=== PATIENT | female | born 1965 | race Caucasian/White ===

== ENCOUNTER 2017-03-02 13:06 | Emergency (ER) | payer OTHER ==
--- NOTE | 2017-03-02 13:12 | UC ---
Cardiac HPI - History of Current Complaint Stated Complaint: CHEST PAIN Time Seen by Provider: 03/02/17 13:11 - Allergy/Home Medications Allergies/Adverse Reactions: Allergies Allergy/AdvReac Type Severity Reaction Status Date / Time Sulfa Drugs Allergy Hives Verified 09/15/13 09:55 PMH/Surg Hx/FS Hx/Imm Hx - Surgical History Surgical History: Yes Surgery Procedure, Year, and Place: D&C w/ ablation, sling and mesh - Social History Alcohol Use: Rare Substance Use Type: None Smoking Status (MU): Never Smoked Tobacco Discharge - Discharge Plan Condition: Stable Disposition: HOME Referrals: Rgoelio Pino MD [Primary Care Provider] - If Needed
--- NOTE | 2017-03-02 13:24 | UC ---
Cardiac HPI - HPI Summary HPI Summary: Severe epigastric pain, sudden onset about 2 hours ago while sitting/walking. Denies radiation or SOB, though pain is worse with deep breaths. No prior AK or stent, denies DM. Father had first AK in his 40s. Some nausea, no vomiting. Also developed significant pain behind L knee yesterday, no known trauma or injury. No hx of DVT, no leg swelling. - History of Current Complaint Chief Complaint: UCChestPain Stated Complaint: CHEST PAIN Time Seen by Provider: 03/02/17 13:11 Hx Obtained From: Patient Onset/Duration: Sudden Onset Timing: Constant Initial Severity: Mild Current Severity: Severe Chest Pain Location: Lower Sternal Character: Dull/Aching, Tightness, Sharp/Stabbing Aggravating: Deep Breaths Alleviating: Nothing Associated Signs & Symptoms: Positive: Chest Pain. Negative: Headaches, Numbness, Tingling, Dizziness, SOB, Swelling, Fever, Diaphoresis, Back Pain - Allergy/Home Medications Allergies/Adverse Reactions: Allergies Allergy/AdvReac Type Severity Reaction Status Date / Time Sulfa Drugs Allergy Hives Verified 03/02/17 13:19 PMH/Surg Hx/FS Hx/Imm Hx Previously Healthy: No - RA Respiratory History: Asthma - Surgical History Surgical History: Yes Surgery Procedure, Year, and Place: D&C w/ ablation, sling and mesh - Social History Alcohol Use: Rare Substance Use Type: None Smoking Status (MU): Never Smoked Tobacco Review of Systems Constitutional: Negative Skin: Negative Eyes: Negative ENT: Negative Respiratory: Negative Cardiovascular: Chest Pain Gastrointestinal: Negative Genitourinary: Negative Motor: Negative Neurovascular: Negative Musculoskeletal: Other: - pain behind L knee, inability to straighten Neurological: Negative Psychological: Negative All Other Systems Reviewed And Are Negative: Yes Physical Exam Triage Information Reviewed: Yes Appearance: Well-Appearing, Well-Nourished, Pain Distress - mod, crying and positioning Vital Signs: Initial Vital Signs Temp 98.6 F 03/02/17 13:14 Pulse 75 03/02/17 13:14 Resp 20 03/02/17 13:14 BP 151/88 03/02/17 13:14 Pulse Ox 99 03/02/17 13:14 Vital Signs Reviewed: Yes Eye Exam: Other - PERRL Eyes: Positive: Conjunctiva Inflamed - crying ENT: Positive: Hearing grossly normal, Pharynx normal, Nasal congestion, TMs normal Dental Exam: Normal Neck exam: Normal Neck: Positive: Supple, Nontender, No Lymphadenopathy Respiratory Exam: Normal Respiratory: Positive: Chest non-tender, Lungs clear, Normal breath sounds, No respiratory distress, No accessory muscle use Cardiovascular Exam: Normal Cardiovascular: Positive: RRR, No Murmur Abdominal Exam: Other - epigastric pain Abdomen Description: Negative: Distended, Guarding Musculoskeletal: Positive: No Edema, ROM Limited @ - L knee Neurological Exam: Normal Neurological: Positive: Alert Psychological Exam: Normal Skin Exam: Normal - Clinical Impression Provider Diagnoses: severe epigastric/chest pain - Physician Notifications Discussed Patient Care With: AGUSTIN Aviles - Gave report, she will have provider call back if they have further question Time Discussed With Above Provider: 13:23 Discharge - Discharge Plan Condition: Stable Disposition: TRANS HIGHER LVL OF CARE FAC Referrals: Rogelio Pino MD [Primary Care Provider] - If Needed
[2017-03-02] MEDS ORDERED: NS 0.9% 1000 ML* 1,000 ML BOLUS SCH (13:30)
[2017-03-02 13:42] VITALS: BP 133/82
[2017-03-03] MEDS ORDERED: Aspirin Low Dose CHEW TAB* 81 MG PO ONE (13:14)
== END 2017-03-02 13:45 | disposition short-term general hospital (02) ==
LOC: UCEAST 13:06
DX: R07.9 Chest pain, unspecified (principal); R10.13 Epigastric pain; Z88.2 Allergy status to sulfonamides; J45.909 Unspecified asthma, uncomplicated
CPT/HCPCS: 93005; 99213; A9270-GY; G0463

== ENCOUNTER 2017-03-02 14:12 | Emergency (ER) | payer OTHER ==
[2017-03-02 14:32] VITALS: BP 146/76
--- NOTE | 2017-03-02 15:22 | RAD ---
INDICATION: Chest pain. COMPARISON: There are no prior studies available for comparison. TECHNIQUE: A portable view of the chest was obtained. FINDINGS: Cardiac and mediastinal contours appear to be within normal limits. The lungs are clear. No pleural effusion is seen. IMPRESSION: NO EVIDENCE FOR ACUTE DISEASE.
[2017-03-02 15:45] LABS: Hematocrit 40 % (35-47); Hemoglobin 13.1 g/dl (12.0-16.0); Mean Corpuscular HGB Conc 33 g/dl (31-36); Mean Corpuscular Hemoglobin 33 pg (27-31); Mean Corpuscular Volume 99 fL (80-97); Mean Platelet Volume 7 um3 (7.4-10.4); Red Blood Count 4.01 10^6/ul (4.0-5.4); Red Cell Distribution Width 13 % (10.5-15); White Blood Count 7.2 10^3/ul (3.5-10.8)
[2017-03-02 16:00] LABS: Albumin 4.3 g/dL (3.2-5.2); BUN/Creatinine Ratio 18.5 (8-20); Calcium 9.8 mg/dL (8.6-10.3); EGFR African American 95.5 (>60); EGFR Non-African American 74.3 (>60); Globulin 3.4 g/dL (2-4); Magnesium 2.1 mg/dL (1.9-2.7); Potassium 3.8 mmol/L (3.5-5.0); Total Bilirubin 0.4 mg/dL (0.2-1.0); Total Protein 7.7 g/dL (6.4-8.9)
[2017-03-02 16:10] LABS: TSH (Thyroid Stimulating Horm) 3.02 mcIU/mL (0.34-5.60)
[2017-03-02] MEDS ORDERED: Pantoprazole TAB (NF) 40 MG TAB PO ONE (16:50)
[2017-03-02] MEDS ORDERED: Lidocaine 2% VISCOUS* 15 ML UDC PO ONE (16:50)
[2017-03-02] MEDS ORDERED: Al Hydrox/Mg Hydrox/Simet LIQ* 30 ML UDC PO ONE (16:50)
[2017-03-02] MEDS ORDERED: Omeprazole CAP* 20 MG PO ONE (18:00)
--- NOTE | 2017-03-03 09:53 | ED ---
Katerin Pierce Thomas, scribed for Cam Herrera MD on 03/02/17 at 1512 . HPI Chest Pain - HPI Summary HPI Summary: The pt is a 51 y/o F referred from urgent care and BIBA c/o epigastric CP that began today at 11:00. She describes her pain as burning and someone hitting her in the chest. The pain is worsened with deep breaths. She additionally c/o L knee pain (onset this AM), inability to take a deep breath, and nausea. She denies SOB, pedal edema, and vomiting. She denies known trauma to her L knee. She took all of her normal medication this morning. 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 She was in the car for an extended period last week. PMHx: knee issues, GERD, asthma, and RA. PSHx: D&C. SHx: rare alcohol, no illicit drugs, no tobacco. FHx: AL (father first AL in his 40s). - History of Current Complaint Chief Complaint: EDChestPainROMI Time Seen by Provider: 03/02/17 14:50 Hx Obtained From: Patient Onset/Duration: Started Hours Ago - 11:00 today, Still Present Timing: Constant Chest Pain Location: Discrete at: - epigastric Chest Pain Radiates: No Character: Burning, Other: - "someone hitting her in the chest" Aggravating Factor(s): Deep Breaths Alleviating Factor(s): Nothing Associated Signs and Symptoms: Positive: Chest Pain, Nausea, Other: - POS: L knee pain. Negative: Shortness of Breath, Vomiting, Edema - pedal - Allergy/Home Medications Allergies/Adverse Reactions: Allergies Allergy/AdvReac Type Severity Reaction Status Date / Time Sulfa Drugs Allergy Hives Verified 03/02/17 13:19 PMH/Surg Hx/FS Hx/Imm Hx Previously Healthy: No Endocrine/Hematology History: Denies: Hx Diabetes, Hx Thyroid Disease Cardiovascular History: Denies: Hx Congestive Heart Failure, Hx Hypertension Respiratory History: Reports: Hx Asthma Denies: Hx Chronic Obstructive Pulmonary Disease (COPD) GI History: Reports: Other GI Disorders - gerd Denies: Hx Ulcer History: Reports: Other Problems/Disorders - occ uti Musculoskeletal History: Reports: Hx Rheumatoid Arthritis, Other Musculoskeletal History - RA - Surgical History Surgery Procedure, Year, and Place: D&C w/ ablation, sling and mesh Infectious Disease History: No Infectious Disease History: Denies: Hx Clostridium Difficile, Hx Hepatitis, Hx Human Immunodeficiency Virus (HIV), Hx of Known/Suspected MRSA, Hx Shingles, Hx Tuberculosis, Hx Known/ Suspected VRE, Hx Known/Suspected VRSA, History Other Infectious Disease, Traveled Outside the [place] in Last 30 Days - Family History Known Family History: Positive: Other - POS: AL (father first in 40s) - Social History Alcohol Use: Rare Substance Use Type: Reports: None Smoking Status (MU): Never Smoked Tobacco Review of Systems Constitutional: Negative Negative: Fever Eyes: Negative ENT: Negative Positive: Chest Pain - epigastric, 11:00 onset, burning, not alleviated by NTG or ASA Positive: Other - POS: "inability to take a deep breath". Negative: Shortness Of Breath Positive: Nausea. Negative: Vomiting Genitourinary: Negative Positive: Other - POS: L knee pain. Negative: Edema - pedal Skin: Negative Neurological: Negative Psychological: Normal All Other Systems Reviewed And Are Negative: Yes Physical Exam - Summary Physical Exam Summary: VITAL SIGNS: Reviewed. GENERAL: ~Patient is a well-developed and nourished female who is lying comfortable in the stretcher. ~Patient is not in any acute respiratory distress. HEAD AND FACE: No signs of trauma. ~No ecchymosis, hematomas or skull depressions. No sinus tenderness. EYES: PERRLA, EOMI x 2, No injected conjunctiva, no nystagmus. EARS: Hearing grossly intact. Ear canals and tympanic membranes are within normal limits. MOUTH: Oropharynx within normal limits. NECK: Supple, trachea is midline, no adenopathy, no JVD, no carotid bruit, no c- spine tenderness, neck with full ROM. CHEST: Symmetric, no tenderness at palpation LUNGS: Clear to auscultation bilaterally. No wheezing or crackles. CVS: Regular rate and rhythm, S1 and S2 present, no murmurs or gallops appreciated. ABDOMEN: Soft, non-tender. No signs of distention. No rebound no guarding, and no masses palpated. Bowel sounds are normal. EXTREMITIES: FROM in all major joints, no edema, no cyanosis or clubbing. NEURO: Alert and oriented x 3. No acute neurological deficits. Speech is normal and follows commands. SKIN: Dry and warm Triage Information Reviewed: Yes Vital Signs On Initial Exam: Initial Vitals Temp Pulse Resp BP Pulse Ox 99.3 F 72 20 146/76 96 03/02/17 14:28 03/02/17 14:28 03/02/17 14:28 03/02/17 14:28 03/02/17 14:28 Vital Signs Reviewed: Yes - Mac Coma Scale Coma Scale Total: 15 Diagnostics - Vital Signs Vital Signs Temp Pulse Resp BP Pulse Ox 03/02/17 14:32 99.3 F 71 20 146/76 96 03/02/17 14:28 99.3 F 72 20 146/76 96 - Laboratory Lab Results: Lab Results 03/02/17 03/02/17 03/02/17 Range/Units 13:35 13:35 13:35 WBC 7.2 (3.5-10.8) 10^3/ul RBC 4.01 (4.0-5.4) 10^6/ul Hgb 13.1 (12.0-16.0) g/dl Hct 40 (35-47) % MCV 99 H (80-97) fL MCH 33 H (27-31) pg MCHC 33 (31-36) g/dl RDW 13 (10.5-15) % Plt Count 415 (150-450) 10^3/ul MPV 7 L (7.4-10.4) um3 Neut % (Auto) 56.0 (38-83) % Lymph % (Auto) 31.9 (25-47) % [place] % (Auto) 6.8 (1-9) % Eos % (Auto) 4.6 (0-6) % Baso % (Auto) 0.7 (0-2) % Absolute Neuts (auto) 4.1 (1.5-7.7) 10^3/ul Absolute Lymphs (auto) 2.3 (1.0-4.8) 10^3/ul Absolute Monos (auto) 0.5 (0-0.8) 10^3/ul Absolute Eos (auto) 0.3 (0-0.6) 10^3/ul Absolute Basos (auto) 0.1 (0-0.2) 10^3/ul Absolute Nucleated RBC 0 10^3/ul Nucleated RBC % 0 INR (Anticoag Therapy) 0.88 L (0.89-1.11) APTT 32.1 (26.0-36.3) seconds D-Dimer, Quantitative < 200 (Less Than 230) ng/mL Sodium 139 (133-145) mmol/L Potassium 3.8 (3.5-5.0) mmol/L Chloride 105 (101-111) mmol/L Carbon Dioxide 28 (22-32) mmol/L Anion Gap 6 (2-11) mmol/L BUN 15 (6-24) mg/dL Creatinine 0.81 (0.51-0.95) mg/dL Est GFR ( Amer) 95.5 (>60) Est GFR (Non-Af Amer) 74.3 (>60) BUN/Creatinine Ratio 18.5 (8-20) Glucose 76 (70-100) mg/dL Calcium 9.8 (8.6-10.3) mg/dL Magnesium 2.1 (1.9-2.7) mg/dL Total Bilirubin 0.40 (0.2-1.0) mg/dL AST 20 (13-39) U/L ALT 20 (7-52) U/L Alkaline Phosphatase 54 (34-104) U/L Total Creatine Kinase 52 (10-223) U/L CK-MB (CK-2) 2.2 (0.6-6.3) ng/mL Troponin I 0.00 (<0.04) ng/mL B-Natriuretic Peptide ( - 100) pg/mL Total Protein 7.7 (6.4-8.9) g/dL Albumin 4.3 (3.2-5.2) g/dL Globulin 3.4 (2-4) g/dL Albumin/Globulin Ratio 1.3 (1-3) TSH 3.02 (0.34-5.60) mcIU/mL 03/02/17 Range/Units 13:35 WBC (3.5-10.8) 10^3/ul RBC (4.0-5.4) 10^6/ul Hgb (12.0-16.0) g/dl Hct (35-47) % MCV (80-97) fL MCH (27-31) pg MCHC (31-36) g/dl RDW (10.5-15) % Plt Count (150-450) 10^3/ul MPV (7.4-10.4) um3 Neut % (Auto) (38-83) % Lymph % (Auto) (25-47) % [place] % (Auto) (1-9) % Eos % (Auto) (0-6) % Baso % (Auto) (0-2) % Absolute Neuts (auto) (1.5-7.7) 10^3/ul Absolute Lymphs (auto) (1.0-4.8) 10^3/ul Absolute Monos (auto) (0-0.8) 10^3/ul Absolute Eos (auto) (0-0.6) 10^3/ul Absolute Basos (auto) (0-0.2) 10^3/ul Absolute Nucleated RBC 10^3/ul Nucleated RBC % INR (Anticoag Therapy) (0.89-1.11) APTT (26.0-36.3) seconds D-Dimer, Quantitative (Less Than 230) ng/mL Sodium (133-145) mmol/L Potassium (3.5-5.0) mmol/L Chloride (101-111) mmol/L Carbon Dioxide (22-32) mmol/L Anion Gap (2-11) mmol/L BUN (6-24) mg/dL Creatinine (0.51-0.95) mg/dL Est GFR ( Amer) (>60) Est GFR (Non-Af Amer) (>60) BUN/Creatinine Ratio (8-20) Glucose (70-100) mg/dL Calcium (8.6-10.3) mg/dL Magnesium (1.9-2.7) mg/dL Total Bilirubin (0.2-1.0) mg/dL AST (13-39) U/L ALT (7-52) U/L Alkaline Phosphatase (34-104) U/L Total Creatine Kinase (10-223) U/L CK-MB (CK-2) (0.6-6.3) ng/mL Troponin I (<0.04) ng/mL B-Natriuretic Peptide 20 ( - 100) pg/mL Total Protein (6.4-8.9) g/dL Albumin (3.2-5.2) g/dL Globulin (2-4) g/dL Albumin/Globulin Ratio (1-3) TSH (0.34-5.60) mcIU/mL Result Diagrams: 03/02/17 13:35 03/02/17 13:35 Lab Statement: Any lab studies that have been ordered have been reviewed, and results considered in the medical decision making process. - Radiology CXR Xray Interpretation: No Acute Changes - no evidence for acute disease Radiology Interpretation Completed By: Radiologist - EKG 15:43 Cardiac Rate: NL - 70 BPM EKG Interpretation: NSR without ST elevations Chest Pain Course/Dx - Course Assessment/Plan: The pt is a 51 y/o F referred from urgent care and BIBA c/o epigastric CP that began today at 11:00. She describes her pain as burning and someone hitting her in the chest. The pain is worsened with deep breaths. She additionally c/o L knee pain (onset this AM), inability to take a deep breath , and nausea. She denies SOB, pedal edema, and vomiting. She denies known trauma to her L knee. She took all of her normal medication this morning. 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 She was in the car for an extended period last week. PMHx: knee issues, GERD, asthma, and RA. PSHx: D& C. SHx: rare alcohol, no illicit drugs, no tobacco. FHx: AL (father first AL in his 40s). CXR reveals no evidence for acute disease. EKG showed NSR without ST elevations. Test results were without significant abnormality. D-dimer was less than 200, meaning that I have no suspicion for DVT or PE. Troponin was 0.00. The patient is not tachycardic or hypoxic. The patient reports chest pain as a burning pain in her epigastric region and also a sour taste in her mouth, especially at night time. Therefore, I do not suspect ACS. It might be related to GERD. She already takes Nexium. The patient was given IV fluids, GI cocktail , and priolosec. All of her significant symptoms improved. At this point, the patient is asymptomatic. Therefore, I will discharge the patient with follow-up from PCP. I gave the patient a prescription for Carafate. The patient is hemodynamically stable and A&Ox3. All questions were answered at patient satisfaction. There were no further complaints or concerns. Lung exam before discharge: CTA B/L. Good air exchange. No wheezing or crackles heard. CVS: S1 and S2 present. No murmurs appreciated. Patient is alert and oriented x 3. Patient is hemodynamically stable. Patient will be discharged home with follow up PCP in the next 2-3 days - Chest Pain Differential Diagnosis/HQI/PQRI: Acute AL, Angina, CHF, Chest Wall, GI Disease, Lower Respiratory Infection - Diagnoses Provider Diagnoses: Chest pain, Leg pain Discharge - Discharge Plan Condition: Stable Disposition: HOME Prescriptions: Sucralfate TAB* [Carafate*] 10 ml PO TID PRN #120 ml PRN Reason: reflux Patient Education Materials: Gastroesophageal Reflux Disease (ED), Noncardiac Chest Pain (ED) Referrals: Rogelio Pino MD [Primary Care Provider] - 3 Days The documentation as recorded by the Katerin oneill Thomas accurately reflects the service I personally performed and the decisions made by Javier henao Walter, MD.
== END 2017-03-02 18:00 | disposition home or self-care (01) ==
LOC: ED 14:12
DX: R07.9 Chest pain, unspecified (principal); M25.562 Pain in left knee
CPT/HCPCS: 36415; 71010; 80053; 82550; 82553; 83735; 83880; 84443; 84484; 85025; 85379; 85610; 85730; 93005; 99284; A9270-GY

== ENCOUNTER 2019-05-06 21:48 | Emergency (ER) | payer OTHER ==
--- OUTSIDE RECORDS SUMMARY | 2019-05-06 21:54 | XMS REPORT | Continuity of Care Document ---
:1965 External Reference #:[id number] Author Name Fidel Kim D.O. Address [address] [place] [id number] Care Team Providers Name Role Phone [facility] - Surgery Care Team Information [phone] Surgical Specialist Kelvin Jack DO - Neuromusculoskeletal Care Team Information [phone] Medicine & OMM Surgical Specialist Lázaro Woodall MD PhD - Rheumatology Care Team Information [phone] Surgical Specialist Murphy Novak MD - Obstetrics & Care Team Information [phone] Gynecology [facility] - Sleep Disorder Care Team Information [phone] Diagnostic Surgical Specialist [facility] - Care Team Information [phone] Rheumatology Surgical Specialist [facility] - Care Team Information [phone] Gastroenterology Surgical Specialist [facility] - Care Team Information [phone] Orthopaedic Surgery Surgical Specialist Problems Active Problems Provider Date Rheumatoid arthritis Rogelio Pino M.D. Onset: 06/03/2006 Intrinsic asthma without status asthmaticus Rogelio Pino M.D. Onset: Chronic rhinitis Rogelio Pino M.D. Onset: 01/30/2011 Dysthymia Rogelio Pino M.D. Onset: 01/30/2011 Sleep apnea Rogelio Pino M.D. Onset: 01/30/2011 Gastroesophageal reflux disease Rogelio Pino M.D. Onset: 01/30/2011 Generalized anxiety disorder Rogelio Pino M.D. Onset: 09/16/2015 Heartburn Fidel Kim D.O. Onset: 01/14/2019 Social History Type Date Description Comments Sex Unknown Tobacco Use Start: Unknown Denies Cigarette Use Tobacco Use Start: Unknown Patient has never smoked Smoking Status Reviewed: 04/26/19 Patient has never smoked Allergies, Adverse Reactions, Alerts Active Allergies Reaction Severity Comments Date Sulfa Hives 05/07/2005 Zoloft "almost psychotic" 06/03/2006 Advair Diskus Headaches 07/24/2010 Medications Active Medications SIG Qnty Indications Ordering Date Provider Estradiol take 1 tab po by Unknown 1mg Tablets mouth every day 9 along with 2 mg tab daily = 3 mg Estradiol one tab po daily Unknown 2mg Tablets along with 1mg 9 daily = 3 mg Hydroxychloroquine 2 by mouth daily Unknown Sulfate 8 200mg Tablets Gabapentin Take 1 Capsule AT 90caps M54.16 [facility] Night Janis Parra 8 Nexium 1 by mouth every 90caps [facility], 40mg Caps[address] DR day for acid reflux Janis Parra 7 Replacement Cpap W/ use as directed, G47.33 Silco, Heated Humidifier And for sleep Jennie Mercado 7 Supplies Medroxyprogesterone take 1 tablet by Unknown Acetate mouth daily 6 2.5mg Tablets Wellbutrin SR take 2 tablets in 270tabs F34.1 [facility], 150mg Tablets the morning and 1 Fidel D.O. 5 ER 12HR in early afternoon; for mood Premarin 1.5 gm Unknown 0.625mg/GM Cream intravaginally 5 twice weekly at night. Hurbvision With Luitein daily OTC Unknown 4 Fish Oil daily Unknown Capsules 4 Vitamin D3 daily Unknown 2000Unit Capsules 4 Methotrexate 6 by mouth every M06.9 Endo, 2.5mg Tablets week for rheumatoid MD Lázaro 3 arthritis PhD Meprobamate take 1/2 to 1 50tabs F41.9 [facility], 400mg Tablets tablet by mouth Jesús ParraO. 3 four times a day if needed for acute anxiety Folic Acid 1 by mouth every M06.9 Silcoff, 1mg Tablets day Jennie Mercado 3 Ventolin HFA inhale 2 puffs by 18units R05 Silcoff, 108(90Base) mouth every 4 hours Jennie Mercado 0 mcg/Act Aerosol as needed for asthma symptoms, wheezing, and cough J45.20 History Medications Estradiol 1 tab po daily Fidel Kim, 03/15/2019 - 2mg Tablets along with 1mg D.O. 04/25/2019 daily = 3mg daily Fluconazole 1 by mouth 3tabs Fidel Kim, 01/25/2019 - 150mg once every 3 D.O. 02/01/2019 Tablets days for 3 doses Doxycycline Hyclate 1 cap by mouth 28tabs J01.00 Fidel Kim, 2018 - twice a day D.O. 01/28/2019 100mg Tablets for 14 days Immunizations CPT Code Status Date Vaccine Lot # [id number] Given 09/16/2015 Adacel or Boostrix, TDaP [id number] Given 09/16/2015 Hep A, Adult [id number] 88762 Given 04/30/2013 Flu, Split Virus 3Yrs U-Flu Refused 2018 Influenza,Unspecified 81525 Refused 07/29/2017 Influenza Virus Vaccine, Quadrivalent, Split, Preservative Free 48725 Refused 07/12/2013 Adacel or Boostrix, TDaP 87411 Refused 08/13/2011 Flu, Split Virus 3Yrs 02667 Refused 07/24/2010 Pneumococcal Immunization 70760 Refused 07/24/2010 Flu, Split Virus 3Yrs Vital Signs Date Vital Result Comment 04/26/2019 1:01pm BP Systolic 128 mmHg BP Diastolic 80 mmHg Weight 181.00 lb 02/19/2019 1:05pm BP Systolic 122 mmHg BP Diastolic 70 mmHg Weight 180.00 lb Results Description No Information Available Procedures Date Code Description Status 04/26/2019 67667 Omt 7-8 Body Regions Completed 02/19/2019 52583 Omt 7-8 Body Regions Completed 01/14/2019 12697 Omt 7-8 Body Regions Completed 12/15/2018 58546 Omt 7-8 Body Regions Completed 03/11/2018 [id number] Mammogram Completed 12/09/2016 [id number] Colonoscopy Completed Medical Devices Description No Information Available Encounters Type Date Location Provider Dx Diagnosis Office Visit 04/26/2019 Main Office Fidel Kim, M54.16 Radiculopathy, 12:55p D.O. lumbar region Z79.891 [facility] (current) use of opiate analgesic M05.79 Rheu arthritis w rheu factor mult site w/o org/sys involv M79.10 Myalgia, unspecified site F41.1 Generalized anxiety disorder M25.511 Pain in right shoulder M25.561 Pain in right knee M25.512 Pain in left shoulder R10.9 Unspecified abdominal pain M99.00 Segmental and somatic dysfunction of head region M99.08 Segmental and somatic dysfunction of rib cage M99.01 Segmental and somatic dysfunction of cervical region M99.03 Segmental and somatic dysfunction of lumbar region M99.05 Segmental and somatic dysfunction of pelvic region M99.02 Segmental and somatic dysfunction of thoracic region M99.04 Segmental and somatic dysfunction of sacral region M99.06 Segmental and somatic dysfunction of lower extremity Office Visit 02/19/2019 12:55p Main Office Fidel Kim, M54.16 Radiculopathy, lumbar D.O. region Z79.891 exterminator helper (current) use of opiate analgesic M05.79 Rheu arthritis w rheu factor mult site w/o org/sys involv M79.10 Myalgia, unspecified site M25.562 Pain in left knee M99.02 Segmental and somatic dysfunction of thoracic region M99.04 Segmental and somatic dysfunction of sacral region M99.05 Segmental and somatic dysfunction of pelvic region M99.03 Segmental and somatic dysfunction of lumbar region M99.00 Segmental and somatic dysfunction of head region M99.01 Segmental and somatic dysfunction of cervical region M99.08 Segmental and somatic dysfunction of rib cage Office Visit 01/14/2019 12:55p Main Office Fidel Kim, J01.00 Acute maxillary D.O. sinusitis, unspecified M54.16 Radiculopathy, lumbar region Z79.891 exterminator helper (current) use of opiate analgesic M05.79 Rheu arthritis w rheu factor mult site w/o org/sys involv M99.02 Segmental and somatic dysfunction of thoracic region M99.03 Segmental and somatic dysfunction of lumbar region M99.05 Segmental and somatic dysfunction of pelvic region M99.08 Segmental and somatic dysfunction of rib cage M99.00 Segmental and somatic dysfunction of head region M99.01 Segmental and somatic dysfunction of cervical region M99.04 Segmental and somatic dysfunction of sacral region M99.06 Segmental and somatic dysfunction of lower extremity Office Visit 12/15/2018 4:45p Main Office Fidel Kim, M79.10 Myalgia, D.O. unspecified site M54.16 Radiculopathy, lumbar region F41.1 Generalized anxiety disorder M25.511 Pain in right shoulder M99.03 Segmental and somatic dysfunction of lumbar region M99.05 Segmental and somatic dysfunction of pelvic region M99.02 Segmental and somatic dysfunction of thoracic region M99.04 Segmental and somatic dysfunction of sacral region M99.08 Segmental and somatic dysfunction of rib cage M99.01 Segmental and somatic dysfunction of cervical region M99.00 Segmental and somatic dysfunction of head region M99.06 Segmental and somatic dysfunction of lower extremity Assessments Date Code Description Provider 04/26/2019 M54.16 Radiculopathy, lumbar region Fidel Kim D.O. 04/26/2019 Z79.891 [facility] (current) use of opiate analgesic Fidel Kim D.O. 04/26/2019 M05.79 Rheumatoid arthritis with rheumatoid factor Fidel Kim D.O. of multiple site 04/26/2019 M79.10 Myalgia, unspecified site Fidel Kim D.O. 04/26/2019 F41.1 Generalized anxiety disorder Fidel Kim D.O. 04/26/2019 M25.511 Pain in right shoulder Fidel Kim D.O. 04/26/2019 M25.561 Pain in right knee Fidel Kim D.O. 04/26/2019 M25.512 Pain in left shoulder Fidel Kim D.O. 04/26/2019 R10.9 Unspecified abdominal pain Fidel Kim D.O. 04/26/2019 M99.00 Segmental and somatic dysfunction of head Fidel Kim D.O. region 04/26/2019 M99.08 Segmental and somatic dysfunction of rib cage Fidel Kim D.O. 04/26/2019 M99.01 Segmental and somatic dysfunction of cervical SopkelseykFidel D.O. region 04/26/2019 M99.03 Segmental and somatic dysfunction of lumbar SopchakFidel , D.O. region 04/26/2019 M99.05 Segmental and somatic dysfunction of pelvic SopchakFidel , D.O. region 04/26/2019 M99.02 Segmental and somatic dysfunction of thoracic SopchakFidel, D.O. region 04/26/2019 M99.04 Segmental and somatic dysfunction of sacral SopchakFidel , D.O. region 04/26/2019 M99.06 Segmental and somatic dysfunction of lower SopFidel pack D.O. extremity 02/19/2019 M54.16 Radiculopathy, lumbar region Fidel Kim D.O. 02/19/2019 Z79.891 exterminator helper (current) use of opiate analgesic Fidel Kim D.O. 02/19/2019 M05.79 Rheumatoid arthritis with rheumatoid factor Fidel Kim D.O. of multiple site 02/19/2019 M79.10 Myalgia, unspecified site Fidel Kim D.O. 02/19/2019 M25.562 Pain in left knee Fidel Kim D.O. 02/19/2019 M99.02 Segmental and somatic dysfunction of thoracic SopchakFidel D.O. region 02/19/2019 M99.04 Segmental and somatic dysfunction of sacral SopchakFidel , D.O. region 02/19/2019 M99.05 Segmental and somatic dysfunction of pelvic SopchakFidel , D.O. region 02/19/2019 M99.03 Segmental and somatic dysfunction of lumbar SopchakFidel D.O. region 02/19/2019 M99.00 Segmental and somatic dysfunction of head SopchaFidel merlos, D.O. region 02/19/2019 M99.01 Segmental and somatic dysfunction of cervical SopchakFidel, D.O. region 02/19/2019 M99.08 Segmental and somatic dysfunction of rib cage Fidel Kim, D.O. 01/14/2019 J01.00 Acute maxillary sinusitis, unspecified Fidel Kim, D.O. 01/14/2019 M54.16 Radiculopathy, lumbar region Fidel Kim, D.O. 01/14/2019 Z79.891 [facility]DC (current) use of opiate analgesic Fidel Kim D.O. 01/14/2019 M05.79 Rheumatoid arthritis with rheumatoid factor Fidel Kim D.O. of multiple site 01/14/2019 M99.02 Segmental and somatic dysfunction of thoracic SopchakFidel, D.O. region 01/14/2019 M99.03 Segmental and somatic dysfunction of lumbar SopkelseykFidel , D.O. region 01/14/2019 M99.05 Segmental and somatic dysfunction of pelvic SopchakFidel , D.O. region 01/14/2019 M99.08 Segmental and somatic dysfunction of rib cage Fidel Kim, D.O. 01/14/2019 M99.00 Segmental and somatic dysfunction of head SopchakFidel, D.O. region 01/14/2019 M99.01 Segmental and somatic dysfunction of cervical SopchakFidel, D.O. region 01/14/2019 M99.04 Segmental and somatic dysfunction of sacral SopchakFidel , D.O. region 01/14/2019 M99.06 Segmental and somatic dysfunction of lower SopkelseykFidel , D.O. extremity 12/15/2018 M79.10 Myalgia, unspecified site Fidel Kim, D.O. 12/15/2018 M54.16 Radiculopathy, lumbar region Fidel Kim, D.O. 12/15/2018 F41.1 Generalized anxiety disorder Fidel Kim D.O. 12/15/2018 M25.511 Pain in right shoulder Fidel Kim, D.O. 12/15/2018 M99.03 Segmental and somatic dysfunction of lumbar SopkelseykFidel , D.O. region 12/15/2018 M99.05 Segmental and somatic dysfunction of pelvic SopkleseykFidel , D.O. region 12/15/2018 M99.02 Segmental and somatic dysfunction of thoracic Fidel Kim D.O. region 12/15/2018 M99.04 Segmental and somatic dysfunction of sacral Fidel Kim D.O. region 12/15/2018 M99.08 Segmental and somatic dysfunction of rib cage Fidel Kim D.O. 12/15/2018 M99.01 Segmental and somatic dysfunction of cervical Fidel Kim D.O. region 12/15/2018 M99.00 Segmental and somatic dysfunction of head Fidel Kim D.O. region 12/15/2018 M99.06 Segmental and somatic dysfunction of lower Fidel Kim D.O. extremity Plan of Treatment Future Appointment(s):06/28/2019 12:55 pm - Fidel Kim D.O. at Main Bwmywn2106/01/2019 11:00 am - Fidel Kim D.O. at Main Lwjlva5004/26/2019 - Fidel Kim D.O.M54.16 Radiculopathy, lumbar regionFollow up:1 month [facility] as dzankhkqhI10.891 exterminator helper (current) use of opiate xcimnwjmiB24.79 Rheumatoid arthritis with rheumatoid factor of multiple siteM79.10 Myalgia, unspecified siteF41.1 Generalized anxiety ctzdnormE95.511 Pain in right aqgdfhjrY89.561 Pain in right kneeM25.512 Pain in left vqqydvdeK42.9 Unspecified abdominal painM99.00 Segmental and somatic dysfunction of head chcjekN79.08 Segmental and somatic dysfunction of rib cageM99.01 Segmental and somatic dysfunction of cervical cyzhtuW32.03 Segmental and somatic dysfunction of lumbar ghuirzX02.05 Segmental and somatic dysfunction of pelvic waeulhD35.02 Segmental and somatic dysfunction of thoracic chhpqlE45.04 Segmental and somatic dysfunction of sacral yotdfoG38.06 Segmental and somatic dysfunction of lower extremity Functional Status Description No Information Available Mental Status Description No Information Available Referrals Description No Information Available
--- OUTSIDE RECORDS SUMMARY | 2019-05-06 21:54 | XMS REPORT | Continuity of Care Document ---
:1965 External Reference #:[id number] Author Name Fidel Kim D.O. Address [address] [place] [id number] Care Team Providers Name Role Phone [facility] - Surgery Care Team Information [phone] Fios Line Installer Kelvin Jack DO - Neuromusculoskeletal Care Team Information Medicine & OMM Fios Line Installer Lázaro Woodall MD PhD - Rheumatology Care Team Information [phone] Fios Line Installer Murphy Novak MD - Obstetrics & Care Team Information [phone] Gynecology Fios Line Installer [facility] - Sleep Disorder Care Team Information [phone] Diagnostic Fios Line Installer [facility] - Care Team Information [phone] Rheumatology Fios Line Installer [facility] - Care Team Information [phone] Gastroenterology Fios Line Installer [facility] - Care Team Information [phone] Orthopaedic Surgery Fios Line Installer Problems Active Problems Provider Date Rheumatoid arthritis [...] Gabapentin Take 1 Capsule AT 90caps M54.16 [facility] Capsules Night Janis Parra 8 Nexium 1 by mouth every 90caps [facility], 40mg Caps[address] DR day for acid reflux Janis Parra 7 Replacement Cpap W/ use as directed, G47.33 Silco, Heated Humidifier And for sleep Jennie Mercado 7 Supplies Medroxyprogesterone take 1 tablet by Unknown Acetate mouth daily 6 2.5mg Tablets Wellbutrin SR take 2 tablets in 270tabs F34.1 [facility], 150mg Tablets the morning and 1 [...] Meprobamate take 1/2 to 1 50tabs F41.9 [facility], 400mg Tablets tablet by mouth Jesús ParraO. [...] CPT Code Status Date Vaccine Lot # [id number] Given 09/16/2015 Adacel or Boostrix, TDaP [id number] Given 09/16/2015 Hep A, Adult [id number] 02584 Given 04/30/2013 Flu, Split Virus 3Yrs U-Flu Refused 2018 Influenza,Unspecified 25881 Refused 07/29/2017 Influenza Virus Vaccine, Quadrivalent, Split, Preservative Free 83428 Refused 07/12/2013 Adacel or Boostrix, TDaP 81412 Refused 08/13/2011 Flu, Split Virus 3Yrs 98997 Refused 07/24/2010 Pneumococcal Immunization 33522 Refused 07/24/2010 Flu, Split Virus 3Yrs Vital Signs Date Vital Result Comment 04/26/2019 1:01pm BP Systolic 128 mmHg BP Diastolic 80 mmHg Weight 181.00 lb 02/19/2019 1:05pm BP Systolic 122 mmHg BP Diastolic 70 mmHg Weight 180.00 lb Results Description No Information Available Procedures Date Code Description Status 04/26/2019 38243 Omt 7-8 Body Regions Completed 02/19/2019 53357 Omt 7-8 Body Regions Completed 01/14/2019 88703 Omt 7-8 Body Regions Completed 12/15/2018 78820 Omt 7-8 Body Regions Completed 03/11/2018 [id number] Mammogram Completed 12/09/2016 33211912 Colonoscopy Completed Medical Devices Description No Information Available Encounters Type Date Location Provider Dx Diagnosis Office Visit 04/26/2019 Main Office Fidel Kim, M54.16 Radiculopathy, 12:55p D.O. lumbar region Z79.891 snf (current) use of opiate analgesic M05.79 Rheu [...] Kim, M54.16 Radiculopathy, lumbar D.O. region Z79.891 terminal clerk (current) use of opiate analgesic M05.79 Rheu [...] sinusitis, unspecified M54.16 Radiculopathy, lumbar region Z79.891 terminal clerk (current) use of opiate analgesic M05.79 Rheu [...] lumbar region Fidel Kim D.O. 04/26/2019 Z79.891 snf (current) use of opiate analgesic Fidel Kim [...] lumbar region Fidel Kim D.O. 02/19/2019 Z79.891 terminal clerk (current) use of opiate analgesic Fidel Kim [...] lumbar region Fidel Kim, D.O. 01/14/2019 Z79.891 snf (current) use of opiate analgesic Fidel Kim [...] Kim, D.O. 12/15/2018 F41.1 Generalized anxiety disorder Fdiel Kim D.O. 12/15/2018 M25.511 Pain in right shoulder Fidel Kim, D.O. 12/15/2018 M99.03 Segmental and somatic dysfunction of lumbar SopkelseykFidel , D.O. region 12/15/2018 M99.05 Segmental and somatic dysfunction of pelvic SopkelseykFidel , D.O. region 12/15/2018 M99.02 Segmental and [...] pm - Fidel Kim D.O. at Main Zkdizp7206/01/2019 11:00 am - Fidel Kim D.O. at Main Smwklk7404/26/2019 - Fidel Kim D.O.M54.16 Radiculopathy, lumbar regionFollow up:1 month [facility] as eotldzqulY14.891 terminal clerk (current) use of opiate cjyookvonF14.79 Rheumatoid arthritis with rheumatoid factor of multiple siteM79.10 Myalgia, unspecified siteF41.1 Generalized anxiety tjospjvzQ92.511 Pain in right pixkmzhgK00.561 Pain in right kneeM25.512 Pain in left cdbtumimS09.9 Unspecified abdominal painM99.00 Segmental and somatic dysfunction of head fstckzU79.08 Segmental and somatic dysfunction of rib cageM99.01 Segmental and somatic dysfunction of cervical kxxqlpU07.03 Segmental and somatic dysfunction of lumbar xaesfaR14.05 Segmental and somatic dysfunction of pelvic uxvtwnA34.02 Segmental and somatic dysfunction of thoracic xrhfvjY60.04 Segmental and somatic dysfunction of sacral xgobotC33.06 Segmental and somatic dysfunction of lower extremity Functional Status Description No Information Available Mental Status Description No Information Available Referrals Description No Information Available
--- OUTSIDE RECORDS SUMMARY | 2019-05-06 21:54 | XMS REPORT | Continuity of Care Document ---
:1965 External Reference #:[id number] Author Name Fidel Kim D.O. Address [address] [place] [id number] Care Team Providers Name Role Phone [facility] - Surgery Care Team Information [phone] Derrick Barge Operator Kelvin Jack DO - Neuromusculoskeletal Care Team Information [phone] Medicine & OMM Derrick Barge Operator Lázaro Woodall MD PhD - Rheumatology Care Team Information [phone] Derrick Barge Operator Murphy Novak MD - Obstetrics & Care Team Information [phone] Gynecology Derrick Barge Operator [facility] - Sleep Disorder Care Team Information [phone] Diagnostic Derrick Barge Operator [facility] - Care Team Information [phone] Rheumatology Derrick Barge Operator [facility] - Care Team Information [phone] Gastroenterology Derrick Barge Operator [facility] - Care Team Information [phone] Orthopaedic Surgery Derrick Barge Operator Problems Active Problems Provider Date Rheumatoid arthritis [...] Gabapentin Take 1 Capsule AT 90caps M54.16 [facility] C[facility] Night Janis Parra 8 Nexium 1 by mouth every 90caps [facility], 40mg Caps[address] DR day for acid reflux Janis Parra 7 Replacement Cpap W/ use as directed, G47.33 Silco, Heated Humidifier And for sleep Jennie Mercado 7 Supplies Medroxyprogesterone take 1 tablet by Unknown Acetate mouth daily 6 2.5mg Tablets Wellbutrin SR take 2 tablets in 270tabs F34.1 [facility], 150mg Tablets the morning and 1 [...] Meprobamate take 1/2 to 1 50tabs F41.9 [facility], 400mg Tablets tablet by mouth Jesús ParraO. 3 four times a day if needed for acute anxiety Folic Acid 1 by mouth every M06.9 Silcoff, 1mg Tablets day Jennie eMrcado 3 Ventolin HFA inhale 2 puffs by [...] CPT Code Status Date Vaccine Lot # [id number] Given 09/16/2015 Adacel or Boostrix, TDaP [id number] 23178 Given 09/16/2015 Hep A, Adult [id number] 24671 Given 04/30/2013 Flu, Split Virus 3Yrs U-Flu Refused 2018 Influenza,Unspecified 78399 Refused 07/29/2017 Influenza Virus Vaccine, Quadrivalent, Split, Preservative Free 25876 Refused 07/12/2013 Adacel or Boostrix, TDaP 71220 Refused 08/13/2011 Flu, Split Virus 3Yrs 51401 Refused 07/24/2010 Pneumococcal Immunization 04051 Refused 07/24/2010 Flu, Split Virus 3Yrs Vital Signs Date Vital Result Comment 04/26/2019 1:01pm BP Systolic 128 mmHg BP Diastolic 80 mmHg Weight 181.00 lb 02/19/2019 1:05pm BP Systolic 122 mmHg BP Diastolic 70 mmHg Weight 180.00 lb Results Description No Information Available Procedures Date Code Description Status 04/26/2019 45328 Omt 7-8 Body Regions Completed 02/19/2019 82523 Omt 7-8 Body Regions Completed 01/14/2019 13375 Omt 7-8 Body Regions Completed 12/15/2018 12873 Omt 7-8 Body Regions Completed 03/11/2018 [id number] Mammogram Completed 12/09/2016 [id number] Colonoscopy Completed Medical Devices Description No Information Available Encounters Type Date Location Provider Dx Diagnosis Office Visit 04/26/2019 Main Office Fidel Kim, M54.16 Radiculopathy, 12:55p D.O. lumbar region Z79.891 longterm (current) use of opiate analgesic M05.79 Rheu [...] Kim, M54.16 Radiculopathy, lumbar D.O. region Z79.891 buttermaker helper (current) use of opiate analgesic M05.79 [...] sinusitis, unspecified M54.16 Radiculopathy, lumbar region Z79.891 buttermaker helper (current) use of opiate analgesic M05.79 [...] lumbar region Fidel Kim D.O. 04/26/2019 Z79.891 longterm (current) use of opiate analgesic Fidel Kim [...] lumbar region Fidel Kim D.O. 02/19/2019 Z79.891 buttermaker helper (current) use of opiate analgesic Fidel [...] lumbar region Fidel Kim, D.O. 01/14/2019 Z79.891 longterm (current) use of opiate analgesic Fidel Kim [...] Kim, D.O. 12/15/2018 F41.1 Generalized anxiety disorder Fiedl Kim D.O. 12/15/2018 M25.511 Pain in right [...] pm - Fidel Kim D.O. at Main Judpid7106/01/2019 11:00 am - Fidel Kim D.O. at Main Szbqih2004/26/2019 - Fidel Kim D.O.M54.16 Radiculopathy, lumbar regionFollow up:1 month [facility] as sudqsmbdoE30.891 buttermaker helper (current) use of opiate wugfhjskjT37.79 Rheumatoid arthritis with rheumatoid factor of multiple siteM79.10 Myalgia, unspecified siteF41.1 Generalized anxiety uwjuxfrqK67.511 Pain in right nmnemldaM19.561 Pain in right kneeM25.512 Pain in left fojkwawfV66.9 Unspecified abdominal painM99.00 Segmental and somatic dysfunction of head bxrhtdM47.08 Segmental and somatic dysfunction of rib cageM99.01 Segmental and somatic dysfunction of cervical nitpzcN01.03 Segmental and somatic dysfunction of lumbar vqvudlB00.05 Segmental and somatic dysfunction of pelvic nlcclkT53.02 Segmental and somatic dysfunction of thoracic dqlrprS58.04 Segmental and somatic dysfunction of sacral cdgkkkH12.06 Segmental and somatic dysfunction of lower extremity Functional Status Description No Information Available Mental Status Description No Information Available Referrals Description No Information Available
--- OUTSIDE RECORDS SUMMARY | 2019-05-06 21:55 | XMS REPORT | Continuity of Care Document ---
:1965 External Reference #:[id number] Author Name Yue De La Torre Care Team Providers Name Role Phone Rogelio Pino MD Primary Care Physician Unavailable Payers Date Identification Numbers Payment Provider Subscriber Policy Number: [id number] [facility] Symone Nicholas PayID: [id number] [place] [address] Problems Active Problems Provider Date Localized, primary osteoarthritis Viviane Yang M.D. Onset: 05/24/2015 Raynaud's disease Lázaro Woodall M.D. Onset: 10/20/2014 Taking medication Lázaro Woodall M.D. Onset: 10/20/2014 Asthma without status asthmaticus Zaina Stevens MD Onset: 06/10/2014 Obstructive sleep apnea syndrome Zaina Stevens MD Onset: 06/10/2014 Osteoarthritis of knee Lázaro Woodall M.D. 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 Onset: Rheumatoid arthritis Lázaro Woodall M.D. Onset: 12/31/2012 Family History Date Family Member(s) Observation Comments General Heart Disease General Diabetes General Cancer Father Hypertension Mother Low Blood Pressure Social History Type Date Description Comments Sex Unknown Marital Status Lives With Lives With Children daughter 20 at [employer] in [place]. 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 Tobacco Use Start: Unknown Never Smoked Cigarettes Smoking Status Reviewed: 03/18/19 Never Smoked Cigarettes ETOH Use Occasionally consumes alcohol Tobacco Use Start: Unknown Patient has never smoked Recreational Drug Use Denies Drug Use Exercise Type/Frequency Does not exercise Allergies, Adverse Reactions, Alerts Active Allergies Reaction Severity Comments Date Sulfa Antibiotics HIVES 12/31/2012 Pollen 06/10/2014 Mold 06/10/2014 Carpeting 06/10/2014 Medications Active Medications SIG Qnty Indications Ordering Date Provider Voltaren apply 1 gram 100gm M79.641 Tray Francisco, 07/21/2018 1% Gel to right hands [employer] twice a day, as needed Nabumetone take one 90tabs M17.0 Tray Singh, 05/01/2017 750mg Tablets tablet by [employer] mouth daily as needed Hydroxychloroquine Take 2 Tablets 180tabs M05.79 Tray Singh, 03/22/2016 Sulfate Twice A Day [employer] 200mg Tablets Z79.899 Herbavision daily Lázaro Woodall, 04/05/2014 Jennie Wellbutrin XL 1 po qd 90tabs Other Ordering 12/31/2012 300mg Tablets Provider ER 24HR Ventolin HFA 2 puffs po qid 1units Other Ordering 12/31/2012 108(90Base) prn Provider mcg/Act Aerosol Folic Acid 1 by mouth every 90tabs LANDON ZambranoP 12/31/2012 1mg Tablets day [place] 3 1 po qd. 100caps Other Ordering 12/31/2012 1000mg Capsules Provider Methotrexate Take 6 Tablets 72tabs Z79.899 LANDON ZambranoP 12/31/2012 2.5mg Tablets Once A Week M05.79 Gabapentin 1 cap at Fidel Kim 300mg Capsules DO Asher Nexium 1 by mouth every day Unknown Capsules Vitamin D 1 by mouth every day Unknown 2000Unit Capsules Calcium 500/D chew 1 tablet by mouth Unknown [id number] two times daily Chewtabs Progesterone Micronized 1 by mouth every day Unknown 100mg Capsules Estradiol 2 1/2 tabs three Unknown 0.5mg Tablets times a day Premarin use1 applicator Unknown 0.625mg/GM Cream intavaginal 2x per week Multi-Vitamin/Minerals 1 by mouth every day 30tabs Unknown Tablets Co Q10 with turmeric and fish Unknown oil daily Probiotic daily Unknown History Medications Percocet 1-2 tabs by 80tabs M06.09 Viviane Yang, 05/24/2015 - 5-325mg mouth q8 as M.DEva 07/25/2017 Tablets needed pain Diclofenac Sodium Take 1 Tablet 180tabs Z79.899 Tray Singh, 12/31/2013 - Twice A Day [employer] 05/01/2017 75mg Tablets M05.79 M17.0 Nexium 1 po qd 90caps Other Ordering 12/31/2012 - 40mg Capsules Provider 01/28/2017 Vitamin D3 Complete Other Ordering 12/31/2012 - Provider 01/28/2017 Tablets Promensil Other Ordering 12/31/2012 - 500mg Tablets Provider 06/09/2014 Osphena daily Unknown - 60mg Tablets 05/09/2015 Glucosamine Chondroitin 1 tab by mouth Unknown - Advanced twice a day 05/09/2015 Tablets (OTC) Duavee 1 po qd Unknown - 0.45-20mg Tablets 12/20/2015 Pantoprazole Sodium 1 by mouth Unknown - 40mg every day 05/01/2017 Tablets Oxycodone HCL Unknown - Unsure 07/21/2018 Tablets Medications Administered in Office Medication SIG Qnty Indications Ordering Provider Date Synvisc Or Synvisc-One Viviane Yang M.D. 02/07/2016 Injection 1 MG Injection Synvisc Or Synvisc-One Viviane Yang M.D. 02/07/2016 Injection 1 MG Injection Depomedrol 40MG HILLARY Sanders 09/22/2015 Injection Depomedrol 40MG HILLARY Sanders 09/22/2015 Injection Depomedrol 80MG Viviane Yang M.D. 06/07/2015 Injection Depomedrol 80MG Viviane Yang M.D. 05/24/2015 Injection Vital Signs Date Vital Result Comment 03/18/2019 8:58am Height 64 inches 5'4" Weight 181.00 lb Heart Rate 70 /min BP Systolic 122 mmHg BP Diastolic 80 mmHg Body Temperature 98.6 F O2 % BldC Oximetry 98 % BMI (Body Mass Index) 31.1 kg/m2 12/14/2018 10:08am Height 64 inches 5'4" Weight 185.50 lb Heart Rate 73 /min BP Systolic 108 mmHg BP Diastolic 71 mmHg Body Temperature 99.4 F O2 % BldC Oximetry 97 % BMI (Body Mass Index) 31.8 kg/m2 07/21/2018 9:58am Height 64 inches 5'4" Weight 188.00 lb heavy clothes on Heart Rate 70 /min BP Systolic Sitting 126 mmHg BP Diastolic Sitting 78 mmHg Pain Level 4 O2 % BldC Oximetry 98 % BMI (Body Mass Index) 32.3 kg/m2 02/23/2018 1:33pm Height 64 inches 5'4" Weight 182.00 lb Heart Rate 72 /min BP Systolic Sitting 130 mmHg BP Diastolic Sitting 80 mmHg Pain Level 4 O2 % BldC Oximetry 97 % BMI (Body Mass Index) 31.2 kg/m2 11/17/2017 1:28pm Weight 178.56 lb Heart Rate 75 /min BP Systolic Sitting 132 mmHg BP Diastolic Sitting 80 mmHg Pain Level 1 O2 % BldC Oximetry 98 % 07/25/2017 10:28am Height 64 inches 5'4" Weight 180.00 lb Heart Rate 81 /min BP Systolic Sitting 130 mmHg BP Diastolic Sitting 86 mmHg Respiratory Rate 14 /min Pain Level 5 BMI (Body Mass Index) 30.9 kg/m2 05/01/2017 9:06am Weight 174.38 lb Heart Rate 79 /min BP Systolic Sitting 120 mmHg BP Diastolic Sitting 80 mmHg O2 % BldC Oximetry 97 % 03/10/2017 2:42pm Height 64 inches 5'4" Weight 175.00 lb Heart Rate 78 /min BP Systolic 140 mmHg BP Diastolic 88 mmHg Respiratory Rate 16 /min Body Temperature 98.5 F Pain Level 2 BMI (Body Mass Index) 30.0 kg/m2 01/28/2017 8:25am Weight 174.00 lb Heart Rate 80 /min BP Systolic Sitting 140 mmHg BP Diastolic Sitting 90 mmHg Respiratory Rate 14 /min Pain Level 3 10/03/2016 9:22am Heart Rate 64 /min BP Systolic 114 mmHg BP Diastolic 76 mmHg 06/27/2016 9:21am Height 64 inches 5'4" Weight 172.56 lb Heart Rate 81 /min BP Systolic 116 mmHg BP Diastolic 80 mmHg O2 % BldC Oximetry 98 % BMI (Body Mass Index) 29.6 kg/m2 03/22/2016 10:35am Height 64 inches 5'4" Weight 170.12 lb Heart Rate 72 /min BP Systolic Sitting 110 mmHg BP Diastolic Sitting 74 mmHg Respiratory Rate 14 /min Pain Level 3 BMI (Body Mass Index) 29.2 kg/m2 02/07/2016 12:10pm Height 64 inches 5'4" Weight 170.00 lb Pain Level 6 BMI (Body Mass Index) 29.2 kg/m2 12/22/2015 10:17am Height 64 inches 5'4" Weight 170.00 lb Heart Rate 81 /min BP Systolic 123 mmHg BP Diastolic 85 mmHg BMI (Body Mass Index) 29.2 kg/m2 12/20/2015 10:32am Height 64 inches 5'4" Weight 170.00 lb Heart Rate 80 /min BP Systolic Sitting 120 mmHg BP Diastolic Sitting 70 mmHg Respiratory Rate 14 /min Body Temperature 99.7 F Pain Level 6 BMI (Body Mass Index) 29.2 kg/m2 09/22/2015 9:52am Height 64 inches 5'4" Weight 170.00 lb Pain Level 5 BMI (Body Mass Index) 29.2 kg/m2 08/23/2015 9:28am Height 64 inches 5'4" Weight 177.25 lb Heart Rate 80 /min BP Systolic Sitting 120 mmHg BP Diastolic Sitting 82 mmHg Respiratory Rate 14 /min Body Temperature 97.8 F Pain Level 2 BMI (Body Mass Index) 30.4 kg/m2 06/07/2015 4:05pm Height 64 inches 5'4" Weight 170.00 lb Pain Level 5 BMI (Body Mass Index) 29.2 kg/m2 05/24/2015 4:11pm Height 64 inches 5'4" Weight 170.00 lb Heart Rate 83 /min BP Systolic 142 mmHg BP Diastolic 90 mmHg BMI (Body Mass Index) 29.2 kg/m2 05/09/2015 11:25am Height 63.5 inches 5'3.50" Weight 171.00 lb Heart Rate 74 /min BP Systolic Sitting 126 mmHg BP Diastolic Sitting 80 mmHg Body Temperature 98.0 F Pain Level 6 BMI (Body Mass Index) 29.8 kg/m2 01/20/2015 10:01am Height 63.5 inches 5'3.50" Weight 170.00 lb Heart Rate 64 /min BP Systolic Sitting 124 mmHg BP Diastolic Sitting 84 mmHg Respiratory Rate 14 /min Pain Level 5 BMI (Body Mass Index) 29.6 kg/m2 10/20/2014 12:05pm Weight 166.00 lb Heart Rate 72 /min BP Systolic Sitting 120 mmHg BP Diastolic Sitting 68 mmHg Pain Level 3 09/02/2014 12:59pm Heart Rate 84 /min BP Systolic Sitting 132 mmHg BP Diastolic Sitting 60 mmHg Respiratory Rate 18 /min O2 % BldC Oximetry 98 % 07/06/2014 9:58am Height 63 inches 5'3" Weight 160.00 lb Heart Rate 76 /min BP Systolic Sitting 128 mmHg BP Diastolic Sitting 70 mmHg Pain Level 4 BMI (Body Mass Index) 28.3 kg/m2 06/10/2014 9:32am Height 63 inches 5'3" Weight 155.00 lb Heart Rate 76 /min BP Systolic Sitting 118 mmHg left arm, reg cuff BP Diastolic Sitting 72 mmHg left arm, reg cuff Respiratory Rate 16 /min O2 % BldC Oximetry 99 % Room air BMI (Body Mass Index) 27.5 kg/m2 Neck Circumference in inches 14.75 04/05/2014 10:01am Height 63 inches 5'3" Weight 151.00 lb Heart Rate 76 /min BP Systolic Sitting 110 mmHg BP Diastolic Sitting 72 mmHg Pain Level 5 BMI (Body Mass Index) 26.7 kg/m2 12/31/2013 1:10pm Height 63 inches 5'3" Weight 160.50 lb Heart Rate 83 /min BP Systolic Sitting 112 mmHg BP Diastolic Sitting 68 mmHg Pain Level 6 BMI (Body Mass Index) 28.4 kg/m2 08/16/2013 10:52am Height 63 inches 5'3" Weight 160.12 lb Heart Rate 68 /min BP Systolic Sitting 98 mmHg BP Diastolic Sitting 66 mmHg BMI (Body Mass Index) 28.4 kg/m2 04/30/2013 11:08am Height 63 inches 5'3" Weight 159.00 lb Heart Rate 90 /min BP Systolic Sitting 106 mmHg BP Diastolic Sitting 64 mmHg BMI (Body Mass Index) 28.2 kg/m2 02/26/2013 11:03am Weight 160.00 lb Heart Rate 69 /min BP Systolic Sitting 120 mmHg BP Diastolic Sitting 70 mmHg 12/31/2012 2:10pm Height 54.25 inches 4'6.25" Weight 160.00 lb Heart Rate 77 /min BP Systolic Sitting 124 mmHg BP Diastolic Sitting 64 mmHg BMI (Body Mass Index) 38.2 kg/m2 Results Test Date Facility Test Result H/L Range Note CBC Auto 02/08/2019 [facility] White Blood 8.0 10^3/uL Normal 3.5-10.[address] [place] [address] [phone] Red Blood Count 3.92 10^6/uL Normal 3.70-4.87 Hemoglobin 12.8 g/dL Normal 12.0-16.0 Hematocrit 38 % Normal 35-47 Mean Corpuscular Volume 97 fL Normal 80-97 Mean Corpuscular Hemoglobin 33 pg High 27-31 Mean Corpuscular HGB Conc 34 g/dL Normal 31-36 Red Cell Distribution Width 13 % Normal 10-15 Platelet Count 403 10^3/uL Normal 150-450 Mean Platelet Volume 7.7 fL Normal 7.4-10.4 Abs Neutrophils 5.3 10^3/uL Normal 1.5-7.7 Abs Lymphocytes 2.0 10^3/uL Normal 1.0-4.8 Abs Monocytes 0.5 10^3/uL Normal 0-0.8 Abs Eosinophils 0.2 10^3/uL Normal 0-0.6 Abs Basophils 0.0 10^3/uL Normal 0-0.2 Abs Nucleated RBC 0.0 10^3/uL Granulocyte % 66.1 % Lymphocyte % 25.3 % Monocyte % 5.7 % Eosinophil % 2.6 % Basophil % 0.3 % Nucleated Red Blood Cells % 0.2 Comp Metabolic 02/08/2019 [facility] Sodium 140 mmol/L Normal 135-[address] [place] [address] [phone] Potassium 4.5 mmol/L Normal 3.5-5.0 Chloride 106 mmol/L Normal 101-111 Co2 Carbon Dioxide 28 mmol/L Normal 22-32 Anion Gap 6 mmol/L Normal 2-11 Glucose 84 mg/dL Normal 70-100 Blood Urea Nitrogen 19 mg/dL Normal 6-24 Creatinine 0.84 mg/dL Normal 0.51-0.95 BUN/Creatinine Ratio 22.6 High 8-20 Calcium 10.5 mg/dL High 8.6-10.3 Total Protein 7.1 g/dL Normal 6.4-8.9 Albumin 4.3 g/dL Normal 3.2-5.2 Globulin 2.8 g/dL Normal 2-4 Albumin/Globulin Ratio 1.5 Normal 1-3 Total Bilirubin 0.30 mg/dL Normal 0.2-1.0 Alkaline Phosphatase 66 U/L Normal 34-104 Alt 16 U/L Normal 7-52 Ast 15 U/L Normal 13-39 Egfr Non- 70.7 >60 Egfr 85.5 >60 1 Laboratory test 02/08/2019 [facility] C Reactive 7.88 mg/L Normal <8.[address] [place] [address] [phone] Erythrocyte Sed Rate 17 mm/Hr Normal 0-29 CBC W/Auto 12/08/2018 [facility] White Blood 6.9 10^3/uL Normal 3.5-10.[address] [place] [address] [phone] Red Blood Count 3.95 10^6/uL Normal 3.70-4.87 Hemoglobin 12.9 g/dL Normal 12.0-16.0 Hematocrit 39 % Normal 33-41 Mean Corpuscular Volume 98 fL High 80-97 Mean Corpuscular Hemoglobin 33 pg High 27-31 Mean Corpuscular HGB Conc 33 g/dL Normal 31-36 Red Cell Distribution Width 13 % Normal 10.5-15 Platelet Count 420 10^3/uL Normal 150-450 Mean Platelet Volume 7.8 fL Normal 7.4-10.4 Abs Neutrophils 3.9 10^3/uL Normal 1.5-7.7 Abs Lymphocytes 2.2 10^3/uL Normal 1.0-4.8 Abs Monocytes 0.6 10^3/uL Normal 0-0.8 Abs Eosinophils 0.2 10^3/uL Normal 0-0.6 Abs Basophils 0 10^3/uL Normal 0-0.2 Abs Nucleated RBC 0 10^3/uL Granulocyte % 56.3 % Lymphocyte % 31.3 % Monocyte % 8.6 % Eosinophil % 3.3 % Basophil % 0.5 % Nucleated Red Blood Cells % 0 CMP Panel 12/08/2018 [facility] Sodium 141 mmol/L Normal 135- [address] [place] [address] [phone] Potassium 4.4 mmol/L Normal 3.5-5.0 Chloride 106 mmol/L Normal 101-111 Co2 Carbon Dioxide 29 mmol/L Normal 22-32 Anion Gap 6 mmol/L Normal 2-11 Glucose 84 mg/dL Normal 70-100 Blood Urea Nitrogen 18 mg/dL Normal 6-24 Creatinine 0.87 mg/dL Normal 0.51-0.95 BUN/Creatinine Ratio 20.7 High 8-20 Calcium 9.9 mg/dL Normal 8.6-10.3 Total Protein 7.1 g/dL Normal 6.4-8.9 Albumin 4.4 g/dL Normal 3.2-5.2 Globulin 2.7 g/dL Normal 2-4 Albumin/Globulin Ratio 1.6 Normal 1-3 Total Bilirubin 0.30 mg/dL Normal 0.2-1.0 Alkaline Phosphatase 60 U/L Normal 34-104 Alt 15 U/L Normal 7-52 Ast 14 U/L Normal 13-39 Egfr Non- 67.9 >60 Egfr 82.1 >60 2 Laboratory test 12/08/2018 [facility] C Reactive 4.16 mg/L Normal <8.[address] [place] [address] [phone] Erythrocyte Sed Rate 10 mm/Hr Normal 0-29 CBC Auto 07/15/2018 [facility] White Blood 8.2 10^3/uL Normal 3.5-10.[address] [place] [address] [phone] Red Blood Count 3.83 10^6/uL Low 4.00-5.40 Hemoglobin 12.6 g/dL Normal 12.0-16.0 Hematocrit 37 % Normal 35-47 Mean Corpuscular Volume 98 fL High 80-97 Mean Corpuscular Hemoglobin 33 pg High 27-31 Mean Corpuscular HGB Conc 34 g/dL Normal 31-36 Red Cell Distribution Width 13 % Normal 10.5-15 Platelet Count 429 10^3/uL Normal 150-450 Mean Platelet Volume 8.2 fL Normal 7.4-10.4 Abs Neutrophils 4.6 10^3/uL Normal 1.5-7.7 Abs Lymphocytes 2.7 10^3/uL Normal 1.0-4.8 Abs Monocytes 0.7 10^3/uL Normal 0-0.8 Abs Eosinophils 0.3 10^3/uL Normal 0-0.6 Abs Basophils 0 10^3/uL Normal 0-0.2 Abs Nucleated RBC 0 10^3/uL Granulocyte % 55.4 % Lymphocyte % 32.4 % Monocyte % 8.2 % Eosinophil % 3.4 % Basophil % 0.6 % Nucleated Red Blood Cells % 0.1 Comp Metabolic 07/15/2018 [facility] Sodium 139 mmol/L Normal 135-[address] [place] [address] [phone] Potassium 4.5 mmol/L Normal 3.5-5.0 Chloride 105 mmol/L Normal 101-111 Co2 Carbon Dioxide 30 mmol/L Normal 22-32 Anion Gap 4 mmol/L Normal 2-11 Glucose 83 mg/dL Normal 70-100 Blood Urea Nitrogen 19 mg/dL Normal 6-24 Creatinine 1.17 mg/dL High 0.51-0.95 BUN/Creatinine Ratio 16.2 Normal 8-20 Calcium 10.0 mg/dL Normal 8.6-10.3 Total Protein 6.9 g/dL Normal 6.4-8.9 Albumin 4.3 g/dL Normal 3.2-5.2 Globulin 2.6 g/dL Normal 2-4 Albumin/Globulin Ratio 1.7 Normal 1-3 Total Bilirubin 0.30 mg/dL Normal 0.2-1.0 Alkaline Phosphatase 64 U/L Normal 34-104 Alt 22 U/L Normal 7-52 Ast 17 U/L Normal 13-39 Egfr Non- 48.2 >60 Egfr 58.3 >60 3 Laboratory test 07/15/2018 [facility] C Reactive 4.65 mg/L Normal <8.[address] [place] [address] [phone] Erythrocyte Sed Rate 17 mm/Hr Normal 0-30 CBC Auto 02/18/2018 [facility] White Blood 7.1 10^3/uL Normal 3.5-10.[address] [place] [address] [phone] Red Blood Count 3.81 10^6/uL Low 4.00-5.40 Hemoglobin 12.6 g/dL Normal 12.0-16.0 Hematocrit 37 % Normal 35-47 Mean Corpuscular Volume 96 fL Normal 80-97 Mean Corpuscular Hemoglobin 33 pg High 27-31 Mean Corpuscular HGB Conc 35 g/dL Normal 31-36 Red Cell Distribution Width 13 % Normal 10.5-15 Platelet Count 402 10^3/uL Normal 150-450 Mean Platelet Volume 7.9 um3 Normal 7.4-10.4 Abs Neutrophils 4.3 10^3/uL Normal 1.5-7.7 Abs Lymphocytes 2.0 10^3/uL Normal 1.0-4.8 Abs Monocytes 0.5 10^3/uL Normal 0-0.8 Abs Eosinophils 0.3 10^3/uL Normal 0-0.6 Abs Basophils 0 10^3/uL Normal 0-0.2 Abs Nucleated RBC 0 10^3/uL Granulocyte % 59.8 % Normal 38-83 Lymphocyte % 28.1 % Normal 25-47 Monocyte % 7.5 % High 0-7 Eosinophil % 3.9 % Normal 0-6 Basophil % 0.7 % Normal 0-2 Nucleated Red Blood Cells % 0 Comp Metabolic 02/18/2018 [facility] Sodium 142 mmol/L Normal 135-[address] [place] [address] [phone] Potassium 4.2 mmol/L Normal 3.5-5.0 Chloride 107 mmol/L Normal 101-111 Co2 Carbon Dioxide 29 mmol/L Normal 22-32 Anion Gap 6 mmol/L Normal 2-11 Glucose 91 mg/dL Normal 70-100 Blood Urea Nitrogen 15 mg/dL Normal 6-24 Creatinine 0.96 mg/dL High 0.51-0.95 BUN/Creatinine Ratio 15.6 Normal 8-20 Calcium 9.8 mg/dL Normal 8.6-10.3 Total Protein 6.9 g/dL Normal 6.4-8.9 Albumin 4.1 g/dL Normal 3.2-5.2 Globulin 2.8 g/dL Normal 2-4 Albumin/Globulin Ratio 1.5 Normal 1-3 Total Bilirubin 0.30 mg/dL Normal 0.2-1.0 Alkaline Phosphatase 54 U/L Normal 34-104 Alt 17 U/L Normal 7-52 Ast 16 U/L Normal 13-39 Egfr Non- 60.8 >60 Egfr 73.6 >60 4 Laboratory test 02/18/2018 [facility] C Reactive 6.26 mg/L Normal <8.[address] [place] [address] [phone] Erythrocyte Sed Rate 22 mm/Hr Normal 0-30 CBC Auto 11/12/2017 [facility] White Blood 7.5 10^3/uL Normal 3.5-10.[address] [place] [address] [phone] Red Blood Count 3.84 10^6/uL Low 4.0-5.4 Hemoglobin 12.3 g/dL Normal 12.0-16.0 Hematocrit 37 % Normal 35-47 Mean Corpuscular Volume 96 fL Normal 80-97 Mean Corpuscular Hemoglobin 32 pg High 27-31 Mean Corpuscular HGB Conc 33 g/dL Normal 31-36 Red Cell Distribution Width 13 % Normal 10.5-15 Platelet Count 462 10^3/uL High 150-450 Mean Platelet Volume 7.0 um3 Low 7.4-10.4 Abs Neutrophils 4.4 10^3/uL Normal 1.5-7.7 Abs Lymphocytes 2.4 10^3/uL Normal 1.0-4.8 Abs Monocytes 0.6 10^3/uL Normal 0-0.8 Abs Eosinophils 0.2 10^3/uL Normal 0-0.6 Abs Basophils 0 10^3/uL Normal 0-0.2 Abs Nucleated RBC 0 10^3/uL Granulocyte % 58.0 % Normal 38-83 Lymphocyte % 31.3 % Normal 25-47 Monocyte % 7.5 % High 0-7 Eosinophil % 2.6 % Normal 0-6 Basophil % 0.6 % Normal 0-2 Nucleated Red Blood Cells % 0 Comp Metabolic 11/12/2017 [facility] Sodium 139 mmol/L Normal 139-[address] [place] [address] [phone] Potassium 3.8 mmol/L Normal 3.5-5.0 Chloride 104 mmol/L Normal 101-111 Co2 Carbon Dioxide 29 mmol/L Normal 22-32 Anion Gap 6 mmol/L Normal 2-11 Glucose 81 mg/dL Normal 70-100 Blood Urea Nitrogen 21 mg/dL Normal 6-24 Creatinine 0.78 mg/dL Normal 0.51-0.95 BUN/Creatinine Ratio 26.9 High 8-20 Calcium 10.0 mg/dL Normal 8.6-10.3 Total Protein 7.1 g/dL Normal 6.4-8.9 Albumin 4.2 g/dL Normal 3.2-5.2 Globulin 2.9 g/dL Normal 2-4 Albumin/Globulin Ratio 1.4 Normal 1-3 Total Bilirubin 0.30 mg/dL Normal 0.2-1.0 Alkaline Phosphatase 68 U/L Normal 34-104 Alt 14 U/L Normal 7-52 Ast 14 U/L Normal 13-39 Egfr Non- 77.3 >60 Egfr 99.4 >60 5 Laboratory test 11/12/2017 [facility] C Reactive 6.57 mg/L High < 5.00 [address] [place] [address] [phone] Erythrocyte Sed Rate 18 mm/Hr Normal 0-30 Laboratory test 07/15/2017 [facility] C Reactive 6.54 mg/L High < 5.00 [address] [place] [address] [phone] Erythrocyte Sed Rate 19 mm/Hr Normal 0-30 Iron & Iron Binding 07/15/2017 [facility] Iron 114 g/dL Normal 50-[address] [place] [address] [phone] Unsaturated Iron Binding 249 g/dL Total Iron Binding Capacity 363 g/dL Normal 250-450 % Iron Saturation 31 % Normal 15-55 Laboratory test 07/15/2017 [facility] Ferritin 67.3 Normal 11- [address] ng/[place] [address] [phone] CBC Auto Diff 07/15/2017 [facility] White Blood 7.7 Normal 3.5 -10.[address] Count 10^3/[place] [address] [phone] Red Blood Count 3.79 10^6/uL Low 4.0-5.4 Hemoglobin 12.2 g/dL Normal 12.0-16.0 Hematocrit 36 % Normal 35-47 Mean Corpuscular Volume 96 fL Normal 80-97 Mean Corpuscular Hemoglobin 32 pg High 27-31 Mean Corpuscular HGB Conc 34 g/dL Normal 31-36 Red Cell Distribution Width 13 % Normal 10.5-15 Platelet Count 416 10^3/uL Normal 150-450 Mean Platelet Volume 7 um3 Low 7.4-10.4 Abs Neutrophils 4.7 10^3/uL Normal 1.5-7.7 Abs Lymphocytes 2.3 10^3/uL Normal 1.0-4.8 Abs Monocytes 0.4 10^3/uL Normal 0-0.8 Abs Eosinophils 0.2 10^3/uL Normal 0-0.6 Abs Basophils 0 10^3/uL Normal 0-0.2 Abs Nucleated RBC 0 10^3/uL Granulocyte % 61.1 % Normal 38-83 Lymphocyte % 30.1 % Normal 25-47 Monocyte % 5.6 % Normal 1-9 Eosinophil % 2.7 % Normal 0-6 Basophil % 0.5 % Normal 0-2 Nucleated Red Blood Cells % 0 Comp Metabolic 07/15/2017 [facility] Sodium 139 mmol/L Normal 133-[address] [place] [address] [phone] Potassium 4.1 mmol/L Normal 3.5-5.0 Chloride 105 mmol/L Normal 101-111 Co2 Carbon Dioxide 26 mmol/L Normal 22-32 Anion Gap 8 mmol/L Normal 2-11 Glucose 95 mg/dL Normal 70-100 Blood Urea Nitrogen 19 mg/dL Normal 6-24 Creatinine 0.81 mg/dL Normal 0.51-0.95 BUN/Creatinine Ratio 23.5 High 8-20 Calcium 9.4 mg/dL Normal 8.6-10.3 Total Protein 6.7 g/dL Normal 6.4-8.9 Albumin 4.0 g/dL Normal 3.2-5.2 Globulin 2.7 g/dL Normal 2-4 Albumin/Globulin Ratio 1.5 Normal 1-3 Total Bilirubin 0.30 mg/dL Normal 0.2-1.0 Alkaline Phosphatase 63 U/L Normal 34-104 Alt 16 U/L Normal 7-52 Ast 16 U/L Normal 13-39 Egfr Non- 74.0 >60 Egfr 95.1 >60 8 CBC Auto 04/29/2017 [facility] White Blood 8.0 10^3/uL Normal 3.5-10.[address] [place] [address] [phone] Red Blood Count 3.64 10^6/uL Low 4.0-5.4 Hemoglobin 11.8 g/dL Low 12.0-16.0 Hematocrit 35 % Normal 35-47 Mean Corpuscular Volume 96 fL Normal 80-97 Mean Corpuscular Hemoglobin 33 pg High 27-31 Mean Corpuscular HGB Conc 34 g/dL Normal 31-36 Red Cell Distribution Width 13 % Normal 10.5-15 Platelet Count 409 10^3/uL Normal 150-450 Mean Platelet Volume 8 um3 Normal 7.4-10.4 Abs Neutrophils 5.0 10^3/uL Normal 1.5-7.7 Abs Lymphocytes 2.2 10^3/uL Normal 1.0-4.8 Abs Monocytes 0.5 10^3/uL Normal 0-0.8 Abs Eosinophils 0.3 10^3/uL Normal 0-0.6 Abs Basophils 0 10^3/uL Normal 0-0.2 Abs Nucleated RBC 0 10^3/uL Normal Granulocyte % 62.1 % Normal 38-83 Lymphocyte % 27.8 % Normal 25-47 Monocyte % 6.1 % Normal 1-9 Eosinophil % 3.6 % Normal 0-6 Basophil % 0.4 % Normal 0-2 Nucleated Red Blood Cells % 0 Normal Comp Metabolic 04/29/2017 [facility] Sodium 138 mmol/L Normal 133-[address] [place] [address] [phone] Potassium 4.3 mmol/L Normal 3.5-5.0 Chloride 104 mmol/L Normal 101-111 Co2 Carbon Dioxide 29 mmol/L Normal 22-32 Anion Gap 5 mmol/L Normal 2-11 Glucose 100 mg/dL Normal 70-100 Blood Urea Nitrogen 17 mg/dL Normal 6-24 Creatinine 0.80 mg/dL Normal 0.51-0.95 BUN/Creatinine Ratio 21.3 High 8-20 Calcium 9.6 mg/dL Normal 8.6-10.3 Total Protein 6.9 g/dL Normal 6.4-8.9 Albumin 4.1 g/dL Normal 3.2-5.2 Globulin 2.8 g/dL Normal 2-4 Albumin/Globulin Ratio 1.5 Normal 1-3 Total Bilirubin 0.30 mg/dL Normal 0.2-1.0 Alkaline Phosphatase 54 U/L Normal 34-104 Alt 21 U/L Normal 7-52 Ast 18 U/L Normal 13-39 Egfr Non- 75.3 Normal >60 Egfr 96.9 Normal >60 9 Laboratory test 04/29/2017 [facility] C Reactive 10.00 mg/L High < 5.00 [address] [place] [address] [phone] Erythrocyte Sed Rate 21 mm/Hr Normal 0-30 CBC Auto 01/01/2017 [facility] White Blood 6.2 10^3/uL Normal 3.5-10.[address] [place] [address] [phone] Red Blood Count 3.72 10^6/uL Low 4.0-5.4 Hemoglobin 12.1 g/dL Normal 12.0-16.0 Hematocrit 36 % Normal 35-47 Mean Corpuscular Volume 97 fL Normal 80-97 Mean Corpuscular Hemoglobin 33 pg High 27-31 Mean Corpuscular HGB Conc 34 g/dL Normal 31-36 Red Cell Distribution Width 13 % Normal 10.5-15 Platelet Count 435 10^3/uL Normal 150-450 Mean Platelet Volume 8 um3 Normal 7.4-10.4 Abs Neutrophils 3.6 10^3/uL Normal 1.5-7.7 Abs Lymphocytes 1.9 10^3/uL Normal 1.0-4.8 Abs Monocytes 0.5 10^3/uL Normal 0-0.8 Abs Eosinophils 0.2 10^3/uL Normal 0-0.6 Abs Basophils 0 10^3/uL Normal 0-0.2 Abs Nucleated RBC 0 10^3/uL Normal Granulocyte % 57.7 % Normal 38-83 Lymphocyte % 30.1 % Normal 25-47 Monocyte % 7.9 % Normal 1-9 Eosinophil % 3.6 % Normal 0-6 Basophil % 0.7 % Normal 0-2 Nucleated Red Blood Cells % 0 Normal Comp Metabolic 01/01/2017 [facility] Sodium 141 mmol/L Normal 133-[address] [place] [address] [phone] Potassium 4.3 mmol/L Normal 3.5-5.0 Chloride 105 mmol/L Normal 101-111 Co2 Carbon Dioxide 29 mmol/L Normal 22-32 Anion Gap 7 mmol/L Normal 2-11 Glucose 95 mg/dL Normal 70-100 Blood Urea Nitrogen 14 mg/dL Normal 6-24 Creatinine 0.81 mg/dL Normal 0.51-0.95 BUN/Creatinine Ratio 17.3 Normal 8-20 Calcium 9.9 mg/dL Normal 8.6-10.3 Total Protein 6.9 g/dL Normal 6.4-8.9 Albumin 4.1 g/dL Normal 3.2-5.2 Globulin 2.8 g/dL Normal 2-4 Albumin/Globulin Ratio 1.5 Normal 1-3 Total Bilirubin 0.40 mg/dL Normal 0.2-1.0 Alkaline Phosphatase 46 U/L Normal 34-104 Alt 20 U/L Normal 7-52 Ast 18 U/L Normal 13-39 Egfr Non- 74.3 Normal >60 Egfr 95.5 Normal >60 11 Laboratory test 01/01/2017 [facility] C Reactive 3.49 mg/L Normal < 5.00 [address] [place] [address] [phone] Erythrocyte Sed Rate 17 mm/Hr Normal 0-30 Laboratory test 09/02/2016 [facility] Amylase 30 U/L Normal 29 -103 [address] [place] [address] [phone] Lipase 28 U/L Normal 11.0-82.0 14 CBC Auto 09/02/2016 [facility] White Blood 6.0 10^3/uL Normal 3.5-10.[address] [place] [address] [phone] Red Blood Count 4.17 10^6/uL Normal 4.0-5.4 Hemoglobin 13.3 g/dL Normal 12.0-16.0 Hematocrit 40 % Normal 35-47 Mean Corpuscular Volume 96 fL Normal 80-97 Mean Corpuscular Hemoglobin 32 pg High 27-31 Mean Corpuscular HGB Conc 33 g/dL Normal 31-36 Red Cell Distribution Width 13 % Normal 10.5-15 Platelet Count 380 10^3/uL Normal 150-450 Mean Platelet Volume 8 um3 Normal 7.4-10.4 Abs Neutrophils 3.6 10^3/uL Normal 1.5-7.7 Abs Lymphocytes 1.5 10^3/uL Normal 1.0-4.8 Abs Monocytes 0.6 10^3/uL Normal 0-0.8 Abs Eosinophils 0.3 10^3/uL Normal 0-0.6 Abs Basophils 0 10^3/uL Normal 0-0.2 Abs Nucleated RBC 0 10^3/uL Normal Granulocyte % 60.7 % Normal 38-83 Lymphocyte % 24.8 % Low 25-47 Monocyte % 9.5 % High 1-9 Eosinophil % 4.6 % Normal 0-6 Basophil % 0.4 % Normal 0-2 Nucleated Red Blood Cells % 0 Normal Comp Metabolic 09/02/2016 [facility] Sodium 138 mmol/L Normal 133-[address] [place] [address] [phone] Potassium 4.1 mmol/L Normal 3.5-5.0 Chloride 103 mmol/L Normal 101-111 Co2 Carbon Dioxide 29 mmol/L Normal 22-32 Anion Gap 6 mmol/L Normal 2-11 Glucose 87 mg/dL Normal 70-100 Blood Urea Nitrogen 15 mg/dL Normal 6-24 Creatinine 0.95 mg/dL Normal 0.51-0.95 BUN/Creatinine Ratio 15.8 Normal 8-20 Calcium 10.0 mg/dL Normal 8.6-10.3 Total Protein 7.2 g/dL Normal 6.4-8.9 Albumin 4.2 g/dL Normal 3.2-5.2 Globulin 3.0 g/dL Normal 2-4 Albumin/Globulin Ratio 1.4 Normal 1-3 Total Bilirubin 0.30 mg/dL Normal 0.2-1.0 Alkaline Phosphatase 62 U/L Normal 34-104 Alt 33 U/L Normal 7-52 Ast 28 U/L Normal 13-39 Egfr Non- 61.8 Normal >60 Egfr 79.4 Normal >60 15 Laboratory test 09/02/2016 [facility] C Reactive 31.28 mg/L High < 5.00 [address] [place] [address] [phone] Erythrocyte Sed Rate 24 mm/Hr Normal 0-30 17 CBC W/Auto 06/27/2016 [facility] White Blood 7.0 10^3/uL Normal 3.5-10.[address] [place] [address] [phone] Red Blood Count 3.74 10^6/uL Low 4.0-5.4 Hemoglobin 11.9 g/dL Low 12.0-16.0 Hematocrit 36 % Normal 35-47 Mean Corpuscular Volume 96 fL Normal 80-97 Mean Corpuscular Hemoglobin 32 pg High 27-31 Mean Corpuscular HGB Conc 33 g/dL Normal 31-36 Red Cell Distribution Width 13 % Normal 10.5-15 Platelet Count 412 10^3/uL Normal 150-450 Mean Platelet Volume 8 um3 Normal 7.4-10.4 Abs Neutrophils 4.5 10^3/uL Normal 1.5-7.7 Abs Lymphocytes 1.8 10^3/uL Normal 1.0-4.8 Abs Monocytes 0.4 10^3/uL Normal 0-0.8 Abs Eosinophils 0.2 10^3/uL Normal 0-0.6 Abs Basophils 0 10^3/uL Normal 0-0.2 Abs Nucleated RBC 0 10^3/uL Normal Granulocyte % 64.1 % Normal 38-83 Lymphocyte % 25.4 % Normal 25-47 Monocyte % 6.4 % Normal 1-9 Eosinophil % 3.5 % Normal 0-6 Basophil % 0.6 % Normal 0-2 Nucleated Red Blood Cells % 0 Normal Laboratory test 06/27/2016 [facility] C Reactive 5.97 mg/L High < 5.00 [address] [place] [address] [phone] Erythrocyte Sed Rate 18 mm/Hr Normal 0-30 19 Laboratory test 06/27/2016 [facility] Vitamin D 57.1 ng/mL High 30-50 [address] Total 25(Oh) [place], [place] [id number] [phone] CMP Panel 06/27/2016 [facility] Sodium 136 mmol/L Normal 133- [address] [place] [address] [phone] Potassium 4.4 mmol/L Normal 3.5-5.0 Chloride 104 mmol/L Normal 101-111 Co2 Carbon Dioxide 27 mmol/L Normal 22-32 Anion Gap 5 mmol/L Normal 2-11 Glucose 79 mg/dL Normal 70-100 Blood Urea Nitrogen 17 mg/dL Normal 6-24 Creatinine 0.73 mg/dL Normal 0.51-0.95 BUN/Creatinine Ratio 23.3 High 8-20 Calcium 9.5 mg/dL Normal 8.6-10.3 Total Protein 7.0 g/dL Normal 6.4-8.9 Albumin 4.1 g/dL Normal 3.2-5.2 Globulin 2.9 g/dL Normal 2-4 Albumin/Globulin Ratio 1.4 Normal 1-3 Total Bilirubin 0.30 mg/dL Normal 0.2-1.0 Alkaline Phosphatase 46 U/L Normal 34-104 Alt 23 U/L Normal 7-52 Ast 18 U/L Normal 13-39 Egfr Non- 83.7 Normal >60 Egfr 107.7 Normal >60 21 CBC Auto 03/22/2016 [facility] White Blood 7.2 10^3/uL Normal 3.5-10.[address] [place] [address] [phone] Red Blood Count 3.68 10^6/uL Low 4.0-5.4 Hemoglobin 11.8 g/dL Low 12.0-16.0 Hematocrit 36 % Normal 35-47 Mean Corpuscular Volume 97 fL Normal 80-97 Mean Corpuscular Hemoglobin 32 pg High 27-31 Mean Corpuscular HGB Conc 33 g/dL Normal 31-36 Red Cell Distribution Width 13 % Normal 10.5-15 Platelet Count 412 10^3/uL Normal 150-450 Mean Platelet Volume 7 um3 Low 7.4-10.4 Abs Neutrophils 4.1 10^3/uL Normal 1.5-7.7 Abs Lymphocytes 2.3 10^3/uL Normal 1.0-4.8 Abs Monocytes 0.5 10^3/uL Normal 0-0.8 Abs Eosinophils 0.3 10^3/uL Normal 0-0.6 Abs Basophils 0 10^3/uL Normal 0-0.2 Abs Nucleated RBC 0.01 10^3/uL Normal Granulocyte % 56.7 % Normal 38-83 Lymphocyte % 31.7 % Normal 25-47 Monocyte % 6.5 % Normal 1-9 Eosinophil % 4.7 % Normal 0-6 Basophil % 0.4 % Normal 0-2 Nucleated Red Blood Cells % 0.1 Normal Comp Metabolic 03/22/2016 [facility] Sodium 138 mmol/L Normal 133-[address] [place] [address] [phone] Potassium 4.2 mmol/L Normal 3.5-5.0 Chloride 106 mmol/L Normal 101-111 Co2 Carbon Dioxide 26 mmol/L Normal 22-32 Anion Gap 6 mmol/L Normal 2-11 Glucose 85 mg/dL Normal 70-100 Blood Urea Nitrogen 18 mg/dL Normal 6-24 Creatinine 0.91 mg/dL Normal 0.51-0.95 BUN/Creatinine Ratio 19.8 Normal 8-20 Calcium 9.6 mg/dL Normal 8.6-10.3 Total Protein 6.6 g/dL Normal 6.4-8.9 Albumin 4.0 g/dL Normal 3.2-5.2 Globulin 2.6 g/dL Normal 2-4 Albumin/Globulin Ratio 1.5 Normal 1-3 Total Bilirubin 0.30 mg/dL Normal 0.2-1.0 Alkaline Phosphatase 54 U/L Normal 34-104 Alt 17 U/L Normal 7-52 Ast 16 U/L Normal 13-39 Egfr Non- 65.2 Normal >60 Egfr 83.8 Normal >60 22 Laboratory test 03/22/2016 [facility] C Reactive 3.15 mg/L Normal < 5.00 [address] [place] [address] [phone] Erythrocyte Sed Rate 17 mm/Hr Normal 0-30 CMP Panel 12/18/2015 [facility] Sodium 138 mmol/L Normal 133- [address] [place] [address] [phone] Potassium 4.4 mmol/L Normal 3.5-5.0 Chloride 104 mmol/L Normal 101-111 Co2 Carbon Dioxide 29 mmol/L Normal 22-32 Anion Gap 5 mmol/L Normal 2-11 Glucose 89 mg/dL Normal 70-100 Blood Urea Nitrogen 18 mg/dL Normal 6-24 Creatinine 0.82 mg/dL Normal 0.51-0.95 BUN/Creatinine Ratio 22.0 High 8-20 Calcium 9.9 mg/dL Normal 8.6-10.3 Total Protein 6.9 g/dL Normal 6.4-8.9 Albumin 4.2 g/dL Normal 3.2-5.2 Globulin 2.7 g/dL Normal 2-4 Albumin/Globulin Ratio 1.6 Normal 1-3 Total Bilirubin 0.30 mg/dL Normal 0.2-1.0 Alkaline Phosphatase 57 U/L Normal 34-104 Alt 22 U/L Normal 7-52 Ast 16 U/L Normal 13-39 Egfr Non- 73.5 Normal >60 Egfr 94.5 Normal >60 24 Laboratory test 12/18/2015 [facility] C Reactive 5.11 mg/L High < 5.00 [address] [place] [address] [phone] Erythrocyte Sed Rate 19 mm/Hr Normal 0-30 26 CBC W/Auto 12/18/2015 [facility] White Blood 7.7 10^3/uL Normal 3.5-10.[address] [place] [address] [phone] Red Blood Count 3.77 10^6/uL Low 4.0-5.4 Hemoglobin 12.2 g/dL Normal 12.0-16.0 Hematocrit 37 % Normal 35-47 Mean Corpuscular Volume 97 fL Normal 80-97 Mean Corpuscular Hemoglobin 32 pg High 27-31 Mean Corpuscular HGB Conc 34 g/dL Normal 31-36 Red Cell Distribution Width 14 % Normal 10.5-15 Platelet Count 434 10^3/uL Normal 150-450 Mean Platelet Volume 8 um3 Normal 7.4-10.4 Abs Neutrophils 4.8 10^3/uL Normal 1.5-7.7 Abs Lymphocytes 2.0 10^3/uL Normal 1.0-4.8 Abs Monocytes 0.5 10^3/uL Normal 0-0.8 Abs Eosinophils 0.3 10^3/uL Normal 0-0.6 Abs Basophils 0 10^3/uL Normal 0-0.2 Abs Nucleated RBC 0 10^3/uL Normal Granulocyte % 63.3 % Normal 38-83 Lymphocyte % 26.5 % Normal 25-47 Monocyte % 6.1 % Normal 1-9 Eosinophil % 3.6 % Normal 0-6 Basophil % 0.5 % Normal 0-2 Nucleated Red Blood Cells % 0 Normal CBC Auto 08/16/2015 [facility] White Blood 7.7 10^3/uL Normal 3.5-10.[address] [place] [address] [phone] Red Blood Count 3.52 10^6/uL Low 4.0-5.4 Hemoglobin 11.6 g/dL Low 12.0-16.0 Hematocrit 35 % Normal 35-47 Mean Corpuscular Volume 100 fL High 80-97 Mean Corpuscular Hemoglobin 33 pg High 27-31 Mean Corpuscular HGB Conc 33 g/dL Normal 31-36 Red Cell Distribution Width 13 % Normal 10.5-15 Platelet Count 416 10^3/uL Normal 150-450 Mean Platelet Volume 7 um3 Low 7.4-10.4 Abs Neutrophils 4.7 10^3/uL Normal 1.5-7.7 Abs Lymphocytes 2.0 10^3/uL Normal 1.0-4.8 Abs Monocytes 0.6 10^3/uL Normal 0-0.8 Abs Eosinophils 0.4 10^3/uL Normal 0-0.6 Abs Basophils 0 10^3/uL Normal 0-0.2 Abs Nucleated RBC 0 10^3/uL Normal Granulocyte % 60.6 % Normal 38-83 Lymphocyte % 26.3 % Normal 25-47 Monocyte % 7.5 % Normal 1-9 Eosinophil % 5.1 % Normal 0-6 Basophil % 0.5 % Normal 0-2 Nucleated Red Blood Cells % 0 Normal Comp Metabolic 08/16/2015 [facility] Sodium 137 mmol/L Normal 133-145 Panel [address] [place] [address] [phone] Potassium 3.9 mmol/L Normal 3.5-5.0 Chloride 105 mmol/L Normal 101-111 Co2 Carbon Dioxide 28 mmol/L Normal 22-32 Anion Gap 4 mmol/L Normal 2-11 Glucose 92 mg/dL Normal 70-100 Blood Urea Nitrogen 19 mg/dL Normal 6-24 Creatinine 0.78 mg/dL Normal 0.51-0.95 BUN/Creatinine Ratio 24.4 High 8-20 Calcium 9.5 mg/dL Normal 8.6-10.3 Total Protein 7.1 g/dL Normal 6.4-8.9 Albumin 4.1 g/dL Normal 3.2-5.2 Globulin 3.0 g/dL Normal 2-4 Albumin/Globulin Ratio 1.4 Normal 1-3 Total Bilirubin 0.30 mg/dL Normal 0.2-1.0 Alkaline Phosphatase 57 U/L Normal 34-104 Alt 59 U/L High 7-52 Ast 35 U/L Normal 13-39 Egfr Non- 77.9 Normal >60 Egfr 100.1 Normal >60 27 Laboratory test 08/16/2015 [facility] C Reactive 8.06 mg/L High < 5.00 [address] [place] [address] [phone] Erythrocyte Sed Rate 26 mm/Hr Normal 0-30 Laboratory test 05/10/2015 [facility] Anti Ssa/Ro <0.2 U Normal [address] [place] [address] [phone] Anti SSB LA <0.2 U Normal 30 Comp Metabolic 05/04/2015 [facility] Sodium 139 mmol/L Normal 133-[address] [place] [address] [phone] Potassium 4.3 mmol/L Normal 3.5-5.0 Chloride 105 mmol/L Normal 101-111 Co2 Carbon Dioxide 29 mmol/L Normal 22-32 Anion Gap 5 mmol/L Normal 2-11 Glucose 82 mg/dL Normal 70-100 Blood Urea Nitrogen 21 mg/dL Normal 6-24 Creatinine 0.98 mg/dL High 0.51-0.95 BUN/Creatinine Ratio 21.4 High 8-20 Calcium 9.4 mg/dL Normal 8.6-10.3 Total Protein 6.9 g/dL Normal 6.4-8.9 Albumin 4.2 g/dL Normal 3.2-5.2 Globulin 2.7 g/dL Normal 2-4 Albumin/Globulin Ratio 1.6 Normal 1-3 Total Bilirubin 0.40 mg/dL Normal 0.2-1.0 Alkaline Phosphatase 60 U/L Normal 34-104 Alt 18 U/L Normal 7-52 Ast 17 U/L Normal 13-39 Egfr Non- 60.1 Normal >60 Egfr 77.3 Normal >60 31 Laboratory test 05/04/2015 [facility] C Reactive 4.40 mg/L Normal < 5.00 [address] [place] [address] [phone] CBC Auto Diff 05/04/2015 [facility] White Blood 7.4 Normal 4.8 -10.[address] Count 10^3/[place] [address] [phone] Red Blood Count 3.91 10^6/uL Low 4.0-5.4 Hemoglobin 12.7 g/dL Normal 12.0-16.0 Hematocrit 38 % Normal 35-47 Mean Corpuscular Volume 98 fL High 80-97 Mean Corpuscular Hemoglobin 33 pg High 27-31 Mean Corpuscular HGB Conc 33 g/dL Normal 31-36 Red Cell Distribution Width 13 % Normal 10.5-15 Platelet Count 432 10^3/uL Normal 150-450 Mean Platelet Volume 7 um3 Low 7.4-10.4 Abs Neutrophils 4.6 10^3/uL Normal 1.5-7.7 Abs Lymphocytes 1.9 10^3/uL Normal 1.0-4.8 Abs Monocytes 0.5 10^3/uL Normal 0-0.8 Abs Eosinophils 0.3 10^3/uL Normal 0-0.6 Abs Basophils 0 10^3/uL Normal 0-0.2 Abs Nucleated RBC 0 10^3/uL Normal Granulocyte % 62.8 % Normal 38-83 Lymphocyte % 26.1 % Normal 25-47 Monocyte % 6.3 % Normal 1-9 Eosinophil % 4.4 % Normal 0-6 Basophil % 0.4 % Normal 0-2 Nucleated Red Blood Cells % 0 Normal Laboratory 05/04/2015 [facility] Erythrocyte Sed 15 mm/Hr Normal 0-30 33 test finding [address] [place] [address] [phone] Comp Metabolic 01/20/2015 [facility] Sodium 139 Normal 133- [address] mmol/[place] [address] [phone] Potassium 4.4 mmol/L Normal 3.5-5.0 Chloride 108 mmol/L Normal 101-111 Co2 Carbon Dioxide 28 mmol/L Normal 22-32 Anion Gap 3 mmol/L Normal 2-11 Glucose 79 mg/dL Normal 70-100 Blood Urea Nitrogen 20 mg/dL Normal 6-24 Creatinine 0.87 mg/dL Normal 0.51-0.95 BUN/Creatinine Ratio 23.0 High 8-20 Calcium 9.5 mg/dL Normal 8.6-10.3 Total Protein 6.7 g/dL Normal 6.4-8.9 Albumin 4.1 g/dL Normal 3.2-5.2 Globulin 2.6 g/dL Normal 2-4 Albumin/Globulin Ratio 1.6 Normal 1-3 Total Bilirubin 0.30 mg/dL Normal 0.2-1.0 Alkaline Phosphatase 47 U/L Normal 34-104 Alt 14 U/L Normal 7-52 Ast 15 U/L Normal 13-39 Egfr Non- 68.9 Normal >60 Egfr 88.6 Normal >60 34 Laboratory test 01/20/2015 [facility] C Reactive 2.47 mg/L Normal < 5.00 [address] [place] [address] [phone] Erythrocyte Sed Rate 16 mm/Hr Normal 0-30 Laboratory test 01/20/2015 [facility] Vitamin D 64.0 ng/mL High 30-[address] Total 25(Oh) [place] [address] [phone] CBC Auto Diff 01/20/2015 [facility] White Blood 6.1 Normal 4.8 -10.[address] Count 10^3/uL [place] [address] [phone] Red Blood Count 3.56 10^6/uL Low 4.0-5.4 Hemoglobin 11.4 g/dL Low 12.0-16.0 Hematocrit 35 % Normal 35-47 Mean Corpuscular Volume 99 fL High 80-97 Mean Corpuscular Hemoglobin 32 pg High 27-31 Mean Corpuscular HGB Conc 32 g/dL Normal 31-36 Red Cell Distribution Width 13 % Normal 10.5-15 Platelet Count 411 10^3/uL Normal 150-450 Mean Platelet Volume 7 um3 Low 7.4-10.4 Abs Neutrophils 3.6 10^3/uL Normal 1.5-7.7 Abs Lymphocytes 1.8 10^3/uL Normal 1.0-4.8 Abs Monocytes 0.4 10^3/uL Normal 0-0.8 Abs Eosinophils 0.3 10^3/uL Normal 0-0.6 Abs Basophils 0 10^3/uL Normal 0-0.2 Abs Nucleated RBC 0 10^3/uL Normal Granulocyte % 58.7 % Normal 38-83 Lymphocyte % 28.8 % Normal 25-47 Monocyte % 6.4 % Normal 1-9 Eosinophil % 5.6 % Normal 0-6 Basophil % 0.5 % Normal 0-2 Nucleated Red Blood Cells % 0 Normal Comp Metabolic Panel 10/13/2014 Sodium 138 mmol/L Normal 133-145 Potassium 4.0 mmol/L Normal 3.5-5.0 Chloride 106 mmol/L Normal 101-111 Co2 Carbon Dioxide 27 mmol/L Normal 22-32 Anion Gap 5 mmol/L Normal 2-11 Glucose 78 mg/dL Normal 70-100 Blood Urea Nitrogen 22 mg/dL Normal 6-24 Creatinine 0.93 mg/dL Normal 0.51-0.95 BUN/Creatinine Ratio 23.7 High 8-20 Calcium 9.3 mg/dL Normal 8.6-10.3 Total Protein 6.6 g/dL Normal 6.4-8.9 Albumin 4.3 g/dL Normal 3.2-5.2 Globulin 2.3 g/dL Normal 2-4 Albumin/Globulin Ratio 1.9 Normal 1-3 Total Bilirubin 0.40 mg/dL Normal 0.2-1.0 Alkaline Phosphatase 45 U/L Normal 34-104 Alt 12 U/L Normal 7-52 Ast 13 U/L Normal 13-39 Egfr Non- 63.8 Normal >60 Egfr 82.1 Normal >60 36 Laboratory test finding 10/13/2014 Erythrocyte Sed Rate 20 mm/Hr Normal 0-30 C Reactive Protein 2.88 mg/L Normal < 5.00 37 CBC Auto Diff 10/13/2014 White Blood Count 7.2 10^3/uL Normal 4.8-10.8 Red Blood Count 3.47 10^6/uL Low 4.0-5.4 Hemoglobin 11.8 g/dL Low 12.0-16.0 Hematocrit 34 % Low 35-47 Mean Corpuscular Volume 99 fL High 80-97 Mean Corpuscular Hemoglobin 34 pg High 27-31 Mean Corpuscular HGB Conc 35 g/dL Normal 31-36 Red Cell Distribution Width 13 % Normal 10.5-15 Platelet Count 414 10^3/uL Normal 150-450 Mean Platelet Volume 7 um3 Low 7.4-10.4 Abs Neutrophils 4.6 10^3/uL Normal 1.5-7.7 Abs Lymphocytes 1.9 10^3/uL Normal 1.0-4.8 Abs Monocytes 0.4 10^3/uL Normal 0-0.8 Abs Eosinophils 0.3 10^3/uL Normal 0-0.6 Abs Basophils 0 10^3/uL Normal 0-0.2 Abs Nucleated RBC 0 10^3/uL Normal Granulocyte % 64.0 % Normal 38-83 Lymphocyte % 26.0 % Normal 25-47 Monocyte % 5.5 % Normal 1-9 Eosinophil % 3.9 % Normal 0-6 Basophil % 0.6 % Normal 0-2 Nucleated Red Blood Cells % 0 Normal CBC Auto Diff 07/06/2014 White Blood Count 7.4 10^3/uL Normal 4.8-10.8 Red Blood Count 3.72 10^6/uL Low 4.0-5.4 Hemoglobin 12.3 g/dL Normal 12.0-16.0 Hematocrit 36 % Normal 35-47 Mean Corpuscular Volume 97 fL Normal 80-97 Mean Corpuscular Hemoglobin 33 pg High 27-31 Mean Corpuscular HGB Conc 34 g/dL Normal 31-36 Red Cell Distribution Width 13 % Normal 10.5-15 Platelet Count 394 10^3/uL Normal 150-450 Mean Platelet Volume 7 um3 Low 7.4-10.4 Abs Neutrophils 4.4 10^3/uL Normal 1.5-7.7 Abs Lymphocytes 2.3 10^3/uL Normal 1.0-4.8 Abs Monocytes 0.4 10^3/uL Normal 0-0.8 Abs Eosinophils 0.3 10^3/uL Normal 0-0.6 Abs Basophils 0 10^3/uL Normal 0-0.2 Abs Nucleated RBC 0 10^3/uL Normal Granulocyte % 59.1 % Normal 38-83 Lymphocyte % 30.5 % Normal 25-47 Monocyte % 6.0 % Normal 1-9 Eosinophil % 4.0 % Normal 0-6 Basophil % 0.4 % Normal 0-2 Nucleated Red Blood Cells % 0 Normal Comp Metabolic Panel 07/06/2014 Sodium 138 mmol/L Normal 133-145 Potassium 4.3 mmol/L Normal 3.5-5.0 38 Chloride 108 mmol/L Normal 101-111 Co2 Carbon Dioxide 26 mmol/L Normal 22-32 Anion Gap 4 mmol/L Normal 2-11 Glucose 77 mg/dL Normal 70-100 Blood Urea Nitrogen 16 mg/dL Normal 6-24 Creatinine 0.85 mg/dL Normal 0.51-0.95 BUN/Creatinine Ratio 18.8 Normal 8-20 Calcium 9.5 mg/dL Normal 8.6-10.3 Total Protein 7.0 g/dL Normal 6.4-8.9 Albumin 4.2 g/dL Normal 3.2-5.2 Globulin 2.8 g/dL Normal 2-4 Albumin/Globulin Ratio 1.5 Normal 1-3 Total Bilirubin 0.50 mg/dL Normal 0.2-1.0 Alkaline Phosphatase 54 U/L Normal 34-104 Alt 27 U/L Normal 7-52 Ast 21 U/L Normal 13-39 Egfr Non- 70.8 Normal >60 Egfr 91.0 Normal >60 39 Laboratory test finding 07/06/2014 Erythrocyte Sed Rate 17 mm/Hr Normal 0-30 C Reactive Protein 3.42 mg/L Normal < 5.00 40 Rheumatoid Factor 381 IU/mL Abnormal <15 41 Cyclic Citrullinated Pept IgG >250.0 U Abnormal 42 Comp Metabolic Panel 03/31/2014 Sodium 138 mmol/L Normal 133-145 Potassium 3.9 mmol/L Normal 3.7-5.6 Chloride 105 mmol/L Normal 101-111 Co2 Carbon Dioxide 28 mmol/L Normal 22-32 Anion Gap 5 mmol/L Normal 2-11 Glucose 93 mg/dL Normal 70-100 Blood Urea Nitrogen 15 mg/dL Normal 6-24 Creatinine 0.84 mg/dL Normal 0.51-0.95 BUN/Creatinine Ratio 17.9 Normal 8-20 Calcium 9.4 mg/dL Normal 8.6-10.3 Total Protein 6.6 g/dL Normal 6.4-8.9 Albumin 4.1 g/dL Normal 3.2-5.2 Globulin 2.5 g/dL Normal 2-4 Albumin/Globulin Ratio 1.6 Normal 1-3 Total Bilirubin 0.30 mg/dL Normal 0.2-1.0 Alkaline Phosphatase 53 U/L Normal 34-104 Alt 24 U/L Normal 7-52 Ast 20 U/L Normal 13-39 Egfr Non- 72.1 Normal >60 Egfr 92.7 Normal >60 43 CBC With Manual Diff 03/31/2014 White Blood Count 6.7 10^3/uL Normal 4.8 -10.8 Red Blood Count 3.66 10^6/uL Low 4.0-5.4 Hemoglobin 12.0 g/dL Normal 12.0-16.0 Hematocrit 35 % Normal 35-47 Mean Corpuscular Volume 97 fL Normal 80-97 Mean Corpuscular Hemoglobin 33 pg High 27-31 Mean Corpuscular HGB Conc 34 g/dL Normal 31-36 Red Cell Distribution Width 13 % Normal 10.5-15 Platelet Count 388 10^3/uL Normal 150-450 Mean Platelet Volume 7 um3 Low 7.4-10.4 Abs Neutrophils 4.2 10^3/uL Normal 1.5-7.7 Abs Lymphocytes 1.8 10^3/uL Normal 1.0-4.8 Abs Monocytes 0.4 10^3/uL Normal 0-0.8 Abs Eosinophils 0.3 10^3/uL Normal 0-0.6 Abs Basophils 0 10^3/uL Normal 0-0.2 Abs Nucleated RBC 0.01 10^3/uL Normal Neutrophil % 58 % Normal 38-83 Lymphocytes % 31 % Normal 25-47 Monocytes % 6 % Normal 0-13 Eosinophils % 4 % Normal 0-6 Basophil % 1 % Normal 0-2 RBC Morphology Normal Normal Normal Laboratory test finding 03/31/2014 Erythrocyte Sed Rate 21 mm/Hr High 0- 14 C Reactive Protein 2.07 mg/L Normal < 5.00 44 Comp Metabolic 12/28/2013 [facility] Sodium 138 mmol/L Normal 133-[address] [place] [address] [phone] Potassium 4.1 mmol/L Normal 3.7-5.6 Chloride 104 mmol/L Normal 101-111 Co2 Carbon Dioxide 29 mmol/L Normal 22-32 Anion Gap 5 mmol/L Normal 2-11 Glucose 79 mg/dL Normal 70-100 Blood Urea Nitrogen 16 mg/dL Normal 6-24 Creatinine 0.79 mg/dL Normal 0.51-0.95 BUN/Creatinine Ratio 20.3 High 8-20 Calcium 9.6 mg/dL Normal 8.6-10.3 Total Protein 6.9 g/dL Normal 6.4-8.9 Albumin 4.2 g/dL Normal 3.2-5.2 Globulin 2.7 g/dL Normal 2-4 Albumin/Globulin Ratio 1.6 Normal 1-3 Total Bilirubin 0.50 mg/dL Normal 0.2-1.0 Alkaline Phosphatase 58 U/L Normal 34-104 Alt 15 U/L Normal 7-52 Ast 17 U/L Normal 13-39 Egfr Non- 77.4 Normal >60 Egfr 99.5 Normal >60 45 Laboratory test 12/28/2013 [facility] C Reactive 1.28 mg/L Normal < 5.00 [address] [place] [address] [phone] CBC Auto Diff 12/28/2013 [facility] White Blood 4.7 Low 4.8- 10.[address] Count 10^3/[place] [address] [phone] Red Blood Count 3.80 10^6/uL Low 4.0-5.4 Hemoglobin 12.1 g/dL Normal 12.0-16.0 Hematocrit 36 % Normal 35-47 Mean Corpuscular Volume 95 fL Normal 80-97 Mean Corpuscular Hemoglobin 32 pg High 27-31 Mean Corpuscular HGB Conc 34 g/dL Normal 31-36 Red Cell Distribution Width 15 % Normal 10.5-15 Platelet Count 448 10^3/uL Normal 150-450 Mean Platelet Volume 7 um3 Low 7.4-10.4 Abs Neutrophils 2.5 10^3/uL Normal 1.5-7.7 Abs Lymphocytes 1.5 10^3/uL Normal 1.0-4.8 Abs Monocytes 0.3 10^3/uL Normal 0-0.8 Abs Eosinophils 0.2 10^3/uL Normal 0-0.6 Abs Basophils 0 10^3/uL Normal 0-0.2 Abs Nucleated RBC 0 10^3/uL Normal Granulocyte % 54.1 % Normal 38-83 Lymphocyte % 33.0 % Normal 25-47 Monocyte % 7.1 % Normal 1-9 Eosinophil % 5.0 % Normal 0-6 Basophil % 0.8 % Normal 0-2 Nucleated Red Blood Cells % 0 Normal Laboratory test 12/28/2013 [facility] Erythrocyte Sed 19 mm/Hr High 0-[address] [place] [address] [phone] CBC Auto Diff 09/14/2013 White Blood 5.8 4.8-10.8 Count 10^3/uL Red Blood Count 3.82 10^6/uL Low 4.0-5.4 Hemoglobin 12.0 g/dL 12.0-16.0 Hematocrit 36 % 35-47 Mean Corpuscular Volume 95 fL 80-97 Mean Corpuscular Hemoglobin 31 pg 27-31 Mean Corpuscular HGB Conc 33 g/dL 31-36 Red Cell Distribution Width 13 % 10.5-15 Platelet Count 405 10^3/uL 150-450 Mean Platelet Volume 8 um3 7.4-10.4 Abs Neutrophils 3.2 10^3/uL 1.5-7.7 Abs Lymphocytes 1.9 10^3/uL 1.0-4.8 Abs Monocytes 0.3 10^3/uL 0-0.8 Abs Eosinophils 0.3 10^3/uL 0-0.6 Abs Basophils 0 10^3/uL 0-0.2 Abs Nucleated RBC 0 10^3/uL Granulocyte % 55.1 % 38-83 Lymphocyte % 33.4 % 25-47 Monocyte % 5.6 % 1-9 Eosinophil % 5.5 % 0-6 Basophil % 0.4 % 0-2 Nucleated Red Blood Cells % 0 Laboratory test finding 09/14/2013 Erythrocyte Sed Rate 31 mm/Hr High 0- 14 C Reactive Protein 0.8 mg/dL High Less than 0.5 Comp Metabolic Panel 09/14/2013 Sodium 141 mmol/L 133-145 Potassium 4.4 mmol/L 3.5-5.0 Chloride 107 mmol/L 101-111 Co2 Carbon Dioxide 27.0 mmol/L 22-32 Anion Gap 7.0 mmol/L 2-11 Glucose 82 mg/dL 70-100 Blood Urea Nitrogen 19 mg/dL 6-24 Creatinine 0.70 mg/dL 0.50-1.40 BUN/Creatinine Ratio 27.1 High 8-20 Calcium 9.5 mg/dL 8.1-9.9 Total Protein 6.8 g/dL 6.2-8.1 Albumin 3.7 g/dL 3.6-5.4 Globulin 3.1 g/dL 2-4 Albumin/Globulin Ratio 1.2 1-3 Total Bilirubin 0.4 mg/dL 0.4-1.5 Alkaline Phosphatase 65 U/L 30-110 Alt 15 U/L 14-54 Ast 18 U/L 12-42 Egfr Non- 88.9 >60 Egfr 114.4 >60 47 Laboratory 09/14/2013 [facility] Hepatitis C Nonreactive Nonreactive test finding [address] [facility] [place] [address] [phone] Comp Metabolic 04/27/2013 [facility] Sodium 137 mmol/L 133- 145 Panel [address] [place] [address] [phone] Potassium 4.3 mmol/L 3.5-5.0 Chloride 103 mmol/L 101-111 Co2 Carbon Dioxide 29.0 mmol/L 22-32 Anion Gap 5.0 mmol/L 2-11 Glucose 68 mg/dL Low 70-100 Blood Urea Nitrogen 20 mg/dL 6-24 Creatinine 0.80 mg/dL 0.50-1.40 BUN/Creatinine Ratio 25.0 High 8-20 Calcium 9.4 mg/dL 8.1-9.9 Total Protein 6.3 g/dL 6.2-8.1 Albumin 3.8 g/dL 3.6-5.4 Globulin 2.5 g/dL 2-4 Albumin/Globulin Ratio 1.5 1-3 Total Bilirubin 0.8 mg/dL 0.4-1.5 Alkaline Phosphatase 60 U/L 30-110 Alt 16 U/L 14-54 Ast 16 U/L 12-42 Egfr Non- 76.6 >60 Egfr 98.5 >60 48 Laboratory test 04/27/2013 [facility] C Reactive 0.5 mg/dL Less than finding [address] Protein 0.5 [place] [address] [phone] CBC Auto Diff 04/27/2013 [facility] White Blood 6.7 10^3/uL 4.8-10.[address] [place] [address] [phone] Red Blood Count 3.68 10^6/uL Low 4.0-5.4 Hemoglobin 11.8 g/dL Low 12.0-16.0 Hematocrit 35 % 35-47 Mean Corpuscular Volume 95 fL 80-97 Mean Corpuscular Hemoglobin 32 pg High 27-31 Mean Corpuscular HGB Conc 34 g/dL 31-36 Red Cell Distribution Width 15 % 10.5-15 Platelet Count 438 10^3/uL 150-450 Mean Platelet Volume 7 um3 Low 7.4-10.4 Abs Neutrophils 4.1 10^3/uL 1.5-7.7 Abs Lymphocytes 1.9 10^3/uL 1.0-4.8 Abs Monocytes 0.3 10^3/uL 0-0.8 Abs Eosinophils 0.3 10^3/uL 0-0.6 Abs Basophils 0 10^3/uL 0-0.2 Abs Nucleated RBC 0.01 10^3/uL Granulocyte % 61.3 % 38-83 Lymphocyte % 28.9 % 25-47 Monocyte % 4.5 % 1-9 Eosinophil % 4.9 % 0-6 Basophil % 0.4 % 0-2 Nucleated Red Blood Cells % 0.1 Laboratory test 04/27/2013 [facility] Erythrocyte Sed 31 mm/Hr High 0-[address] [place] [address] [phone] Comp Metabolic 02/15/2013 [facility] Sodium 137 133-[address] mmol/[place] [address] [phone] Potassium 4.3 mmol/L 3.5-5.0 Chloride 106 mmol/L 101-111 Co2 Carbon Dioxide 28.0 mmol/L 22-32 Anion Gap 3.0 mmol/L 2-11 Glucose 71 mg/dL 70-100 Blood Urea Nitrogen 16 mg/dL 6-24 Creatinine 0.70 mg/dL 0.50-1.40 BUN/Creatinine Ratio 22.9 High 8-20 Calcium 9.3 mg/dL 8.1-9.9 Total Protein 6.3 g/dL 6.2-8.1 Albumin 3.6 g/dL 3.6-5.4 Globulin 2.7 g/dL 2-4 Albumin/Globulin Ratio 1.3 1-3 Total Bilirubin 0.6 mg/dL 0.4-1.5 Alkaline Phosphatase 64 U/L 30-110 Alt 21 U/L 14-54 Ast 27 U/L 12-42 Egfr Non- 89.3 >60 Egfr 114.9 >60 49 Laboratory test 02/15/2013 [facility] Erythrocyte Sed 48 mm/Hr High 0-[address] [place] [address] [phone] C Reactive Protein 1.4 mg/dL High Less than 0.5 CBC Auto Diff 02/15/2013 [facility] White Blood 8.8 10^3/uL 4.8-10.[address] [place] [address] [phone] Red Blood Count 3.64 10^6/uL Low 4.0-5.4 Hemoglobin 11.1 g/dL Low 12.0-16.0 Hematocrit 34 % Low 35-47 Mean Corpuscular Volume 92 fL 80-97 Mean Corpuscular Hemoglobin 30 pg 27-31 Mean Corpuscular HGB Conc 33 g/dL 31-36 Red Cell Distribution Width 14 % 10.5-15 Platelet Count 445 10^3/uL 150-450 Mean Platelet Volume 8 um3 7.4-10.4 Abs Neutrophils 6.2 10^3/uL 1.5-7.7 Abs Lymphocytes 1.6 10^3/uL 1.0-4.8 Abs Monocytes 0.5 10^3/uL 0-0.8 Abs Eosinophils 0.4 10^3/uL 0-0.6 Abs Basophils 0 10^3/uL 0-0.2 Abs Nucleated RBC 0 10^3/uL Granulocyte % 70.4 % 38-83 Lymphocyte % 18.6 % Low 25-47 Monocyte % 6.1 % 1-9 Eosinophil % 4.7 % 0-6 Basophil % 0.2 % 0-2 Nucleated Red Blood Cells % 0 Laboratory test 01/05/2013 [facility] Cyclic >250.0 U Abnormal [address] [place] [address] Pept IgG [phone] Creatine Kinase 50 U/L 0-200 Lupus Anticoagulant 01/05/2013 [facility] Prothrombin 10.7 sec [address] Time([place]) [place] [address] [phone] Lac Inr 1.0 Lac Aptt 31 sec 26 - 36 Lac DRVVT Screen Ratio 1.0 ratio 0.0 - 1.1 Lupus Anticoagulant Interpreta See Comment 52 Comp Metabolic Panel 01/05/2013 [facility] Sodium 138 mmol/L 133-[address] [place] [address] [phone] Potassium 4.3 mmol/L 3.5-5.0 Chloride 105 mmol/L 101-111 Co2 Carbon Dioxide 28.0 mmol/L 22-32 Anion Gap 5.0 mmol/L 2-11 Glucose 87 mg/dL 70-100 Blood Urea Nitrogen 22 mg/dL 6-24 Creatinine 0.80 mg/dL 0.50-1.40 BUN/Creatinine Ratio 27.5 High 8-20 Calcium 9.7 mg/dL 8.1-9.9 Total Protein 6.7 g/dL 6.2-8.1 Albumin 3.7 g/dL 3.6-5.4 Globulin 3.0 g/dL 2-4 Albumin/Globulin Ratio 1.2 1-3 Total Bilirubin 0.6 mg/dL 0.4-1.5 Alkaline Phosphatase 67 U/L 30-110 Alt 18 U/L 14-54 Ast 25 U/L 12-42 Egfr Non- 76.6 >60 Egfr 98.5 >60 53 Laboratory test 12/28/2012 [facility] Erythrocyte Sed 45 mm/Hr High 0-[address] [place] [address] [phone] CBC Auto Diff 12/28/2012 [facility] White Blood 8.0 4.8-10.[address] Count 10^3/[place] [address] [phone] Red Blood Count 3.95 10^6/uL Low 4.0-5.4 Hemoglobin 12.0 g/dL 12.0-16.0 Hematocrit 37 % 35-47 Mean Corpuscular Volume 93 fL 80-97 Mean Corpuscular Hemoglobin 30 pg 27-31 Mean Corpuscular HGB Conc 33 g/dL 31-36 Red Cell Distribution Width 14 % 10.5-15 Platelet Count 500 10^3/uL High 150-450 Mean Platelet Volume 7 um3 Low 7.4-10.4 Abs Neutrophils 5.7 10^3/uL 1.5-7.7 Abs Lymphocytes 1.6 10^3/uL 1.0-4.8 Abs Monocytes 0.3 10^3/uL 0-0.8 Abs Eosinophils 0.4 10^3/uL 0-0.6 Abs Basophils 0 10^3/uL 0-0.2 Abs Nucleated RBC 0 10^3/uL Granulocyte % 70.6 % 38-83 Lymphocyte % 20.2 % Low 25-47 Monocyte % 4.2 % 1-9 Eosinophil % 4.7 % 0-6 Basophil % 0.3 % 0-2 Nucleated Red Blood Cells % 0 Laboratory test 12/28/2012 [facility] C Reactive 1.6 mg/dL High Less than finding [address] Protein 0.5 [place] [address] [phone] 1 Because ethnic data is not always readily available, this report includes an eGFR for both -Americans and non- Americans. The National Kidney Disease Education Program (NKDEP) does not endorse the use of the MDRD equation for patients that are not between the ages of 18 and 70, are , have extremes of body size, muscle mass, or nutritional status, or are non- or non-. According to the National Kidney Foundation, irrespective of diagnosis, the stage of the disease is based on the level of kidney function: Stage Description GFR(mL/min/1.73 m(2)) 1 Kidney damage with normal or decreased GFR 90 2 Kidney damage with mild decrease in GFR 60-89 3 Moderate decrease in GFR 30-59 4 Severe decrease in GFR 15-29 5 Kidney failure <15 (or dialysis) 2 Because ethnic data is not always readily available, this report includes an eGFR for both -Americans and non- Americans. The National Kidney Disease Education Program (NKDEP) does not endorse the use of the MDRD equation for patients that are not between the ages of 18 and 70, are , have extremes of body size, muscle mass, or nutritional status, or are non- or non-. According to the National Kidney Foundation, irrespective of diagnosis, the stage of the disease is based on the level of kidney function: Stage Description GFR(mL/min/1.73 m(2)) 1 Kidney damage with normal or decreased GFR 90 2 Kidney damage with mild decrease in GFR 60-89 3 Moderate decrease in GFR 30-59 4 Severe decrease in GFR 15-29 5 Kidney failure <15 (or dialysis) 3 Because ethnic data is not always readily available, this report includes an eGFR for both -Americans and non- Americans. The National Kidney Disease Education Program (NKDEP) does not endorse the use of the MDRD equation for patients that are not between the ages of 18 and 70, are , have extremes of body size, muscle mass, or nutritional status, or are non- or non-. According to the National Kidney Foundation, irrespective of diagnosis, the stage of the disease is based on the level of kidney function: Stage Description GFR(mL/min/1.73 m(2)) 1 Kidney damage with normal or decreased GFR 90 2 Kidney damage with mild decrease in GFR 60-89 3 Moderate decrease in GFR 30-59 4 Severe decrease in GFR 15-29 5 Kidney failure <15 (or dialysis) 4 Because ethnic data is not always readily available, this report includes an eGFR for both -Americans and non- Americans. The National Kidney Disease Education Program (NKDEP) does not endorse the use of the MDRD equation for patients that are not between the ages of 18 and 70, are , have extremes of body size, muscle mass, or nutritional status, or are non- or non-. According to the National Kidney Foundation, irrespective of diagnosis, the stage of the disease is based on the level of kidney function: Stage Description GFR(mL/min/1.73 m(2)) 1 Kidney damage with normal or decreased GFR 90 2 Kidney damage with mild decrease in GFR 60-89 3 Moderate decrease in GFR 30-59 4 Severe decrease in GFR 15-29 5 Kidney failure <15 (or dialysis) 5 Because ethnic data is not always readily available, this report includes an eGFR for both -Americans and non- Americans. The National Kidney Disease Education Program (NKDEP) does not endorse the use of the MDRD equation for patients that are not between the ages of 18 and 70, are , have extremes of body size, muscle mass, or nutritional status, or are non- or non-. According to the National Kidney Foundation, irrespective of diagnosis, the stage of the disease is based on the level of kidney function: Stage Description GFR(mL/min/1.73 m(2)) 1 Kidney damage with normal or decreased GFR 90 2 Kidney damage with mild decrease in GFR 60-89 3 Moderate decrease in GFR 30-59 4 Severe decrease in GFR 15-29 5 Kidney failure <15 (or dialysis) 6 Acute inflammation: >10.00 7 Acute inflammation: >10.00 8 Because ethnic data is not always readily available, this report includes an eGFR for both -Americans and non- Americans. The National Kidney Disease Education Program (NKDEP) does not endorse the use of the MDRD equation for patients that are not between the ages of 18 and 70, are , have extremes of body size, muscle mass, or nutritional status, or are non- or non-. According to the National Kidney Foundation, irrespective of diagnosis, the stage of the disease is based on the level of kidney function: Stage Description GFR(mL/min/1.73 m(2)) 1 Kidney damage with normal or decreased GFR 90 2 Kidney damage with mild decrease in GFR 60-89 3 Moderate decrease in GFR 30-59 4 Severe decrease in GFR 15-29 5 Kidney failure <15 (or dialysis) 9 Because ethnic data is not always readily available, this report includes an eGFR for both -Americans and non- Americans. The National Kidney Disease Education Program (NKDEP) does not endorse the use of the MDRD equation for patients that are not between the ages of 18 and 70, are , have extremes of body size, muscle mass, or nutritional status, or are non- or non-. According to the National Kidney Foundation, irrespective of diagnosis, the stage of the disease is based on the level of kidney function: Stage Description GFR(mL/min/1.73 m(2)) 1 Kidney damage with normal or decreased GFR 90 2 Kidney damage with mild decrease in GFR 60-89 3 Moderate decrease in GFR 30-59 4 Severe decrease in GFR 15-29 5 Kidney failure <15 (or dialysis) 10 Acute inflammation: >10.00 11 Because ethnic data is not always readily available, this report includes an eGFR for both -Americans and non- Americans. The National Kidney Disease Education Program (NKDEP) does not endorse the use of the MDRD equation for patients that are not between the ages of 18 and 70, are , have extremes of body size, muscle mass, or nutritional status, or are non- or non-. According to the National Kidney Foundation, irrespective of diagnosis, the stage of the disease is based on the level of kidney function: Stage Description GFR(mL/min/1.73 m(2)) 1 Kidney damage with normal or decreased GFR 90 2 Kidney damage with mild decrease in GFR 60-89 3 Moderate decrease in GFR 30-59 4 Severe decrease in GFR 15-29 5 Kidney failure <15 (or dialysis) 12 Acute inflammation: >10.00 13 Copy Result to: RHEUMATOLOGY, [facility] ([id number]) 14 Copy Result to: RHEUMATOLOGY, [facility] ([id number]) 15 Because ethnic data is not always readily available, this report includes an eGFR for both -Americans and non- Americans. The National Kidney Disease Education Program (NKDEP) does not endorse the use of the MDRD equation for patients that are not between the ages of 18 and 70, are , have extremes of body size, muscle mass, or nutritional status, or are non- or non-. According to the National Kidney Foundation, irrespective of diagnosis, the stage of the disease is based on the level of kidney function: Stage Description GFR(mL/min/1.73 m(2)) 1 Kidney damage with normal or decreased GFR 90 2 Kidney damage with mild decrease in GFR 60-89 3 Moderate decrease in GFR 30-59 4 Severe decrease in GFR 15-29 5 Kidney failure <15 (or dialysis) 16 Acute inflammation: >10.00 17 STANDING ORDER ENTERED 06/27/16 EXPIRES 12/24/16 18 Acute inflammation: >10.00 19 standing order 20 1x order 21 Because ethnic data is not always readily available, this report includes an eGFR for both -Americans and non- Americans. The National Kidney Disease Education Program (NKDEP) does not endorse the use of the MDRD equation for patients that are not between the ages of 18 and 70, are , have extremes of body size, muscle mass, or nutritional status, or are non- or non-. According to the National Kidney Foundation, irrespective of diagnosis, the stage of the disease is based on the level of kidney function: Stage Description GFR(mL/min/1.73 m(2)) 1 Kidney damage with normal or decreased GFR 90 2 Kidney damage with mild decrease in GFR 60-89 3 Moderate decrease in GFR 30-59 4 Severe decrease in GFR 15-29 5 Kidney failure <15 (or dialysis) 22 Because ethnic data is not always readily available, this report includes an eGFR for both -Americans and non- Americans. The National Kidney Disease Education Program (NKDEP) does not endorse the use of the MDRD equation for patients that are not between the ages of 18 and 70, are , have extremes of body size, muscle mass, or nutritional status, or are non- or non-. According to the National Kidney Foundation, irrespective of diagnosis, the stage of the disease is based on the level of kidney function: Stage Description GFR(mL/min/1.73 m(2)) 1 Kidney damage with normal or decreased GFR 90 2 Kidney damage with mild decrease in GFR 60-89 3 Moderate decrease in GFR 30-59 4 Severe decrease in GFR 15-29 5 Kidney failure <15 (or dialysis) 23 Acute inflammation: >10.00 24 Because ethnic data is not always readily available, this report includes an eGFR for both -Americans and non- Americans. The National Kidney Disease Education Program (NKDEP) does not endorse the use of the MDRD equation for patients that are not between the ages of 18 and 70, are , have extremes of body size, muscle mass, or nutritional status, or are non- or non-. According to the National Kidney Foundation, irrespective of diagnosis, the stage of the disease is based on the level of kidney function: Stage Description GFR(mL/min/1.73 m(2)) 1 Kidney damage with normal or decreased GFR 90 2 Kidney damage with mild decrease in GFR 60-89 3 Moderate decrease in GFR 30-59 4 Severe decrease in GFR 15-29 5 Kidney failure <15 (or dialysis) 25 Acute inflammation: >10.00 26 PRN VALID 12/18/15-06/19/16 Q 6 WEEEKS 27 Because ethnic data is not always readily available, this report includes an eGFR for both -Americans and non- Americans. The National Kidney Disease Education Program (NKDEP) does not endorse the use of the MDRD equation for patients that are not between the ages of 18 and 70, are , have extremes of body size, muscle mass, or nutritional status, or are non- or non-. According to the National Kidney Foundation, irrespective of diagnosis, the stage of the disease is based on the level of kidney function: Stage Description GFR(mL/min/1.73 m(2)) 1 Kidney damage with normal or decreased GFR 90 2 Kidney damage with mild decrease in GFR 60-89 3 Moderate decrease in GFR 30-59 4 Severe decrease in GFR 15-29 5 Kidney failure <15 (or dialysis) 28 Acute inflammation: >10.00 29 REFERENCE VALUE <1.0 (Negative) Test Performed by: [address] [address] [employer]or Chain Helper: Manuel Smith II, M.D., Ph.D. 30 REFERENCE VALUE <1.0 (Negative) Test Performed by: [facility] - [address] [address] Surveyor Chain Helper: Manuel Smith II, M.D., Ph.D. 31 Because ethnic data is not always readily available, this report includes an eGFR for both -Americans and non- Americans. The National Kidney Disease Education Program (NKDEP) does not endorse the use of the MDRD equation for patients that are not between the ages of 18 and 70, are , have extremes of body size, muscle mass, or nutritional status, or are non- or non-. According to the National Kidney Foundation, irrespective of diagnosis, the stage of the disease is based on the level of kidney function: Stage Description GFR(mL/min/1.73 m(2)) 1 Kidney damage with normal or decreased GFR 90 2 Kidney damage with mild decrease in GFR 60-89 3 Moderate decrease in GFR 30-59 4 Severe decrease in GFR 15-29 5 Kidney failure <15 (or dialysis) 32 Acute inflammation: >10.00 33 ORDERED 11/16/14 EXPIRES 05/18/15 34 Because ethnic data is not always readily available, this report includes an eGFR for both -Americans and non- Americans. The National Kidney Disease Education Program (NKDEP) does not endorse the use of the MDRD equation for patients that are not between the ages of 18 and 70, are , have extremes of body size, muscle mass, or nutritional status, or are non- or non-. According to the National Kidney Foundation, irrespective of diagnosis, the stage of the disease is based on the level of kidney function: Stage Description GFR(mL/min/1.73 m(2)) 1 Kidney damage with normal or decreased GFR 90 2 Kidney damage with mild decrease in GFR 60-89 3 Moderate decrease in GFR 30-59 4 Severe decrease in GFR 15-29 5 Kidney failure <15 (or dialysis) 35 Acute inflammation: >10.00 36 Because ethnic data is not always readily available, this report includes an eGFR for both -Americans and non- Americans. The National Kidney Disease Education Program (NKDEP) does not endorse the use of the MDRD equation for patients that are not between the ages of 18 and 70, are , have extremes of body size, muscle mass, or nutritional status, or are non- or non-. According to the National Kidney Foundation, irrespective of diagnosis, the stage of the disease is based on the level of kidney function: Stage Description GFR(mL/min/1.73 m(2)) 1 Kidney damage with normal or decreased GFR 90 2 Kidney damage with mild decrease in GFR 60-89 3 Moderate decrease in GFR 30-59 4 Severe decrease in GFR 15-29 5 Kidney failure <15 (or dialysis) 37 Acute inflammation: >10.00 38 Potassium reference range changed effective 06/12/14 39 Because ethnic data is not always readily available, this report includes an eGFR for both -Americans and non- Americans. The National Kidney Disease Education Program (NKDEP) does not endorse the use of the MDRD equation for patients that are not between the ages of 18 and 70, are , have extremes of body size, muscle mass, or nutritional status, or are non- or non-. According to the National Kidney Foundation, irrespective of diagnosis, the stage of the disease is based on the level of kidney function: Stage Description GFR(mL/min/1.73 m(2)) 1 Kidney damage with normal or decreased GFR 90 2 Kidney damage with mild decrease in GFR 60-89 3 Moderate decrease in GFR 30-59 4 Severe decrease in GFR 15-29 5 Kidney failure <15 (or dialysis) 40 Acute inflammation: >10.00 41 Test Performed by: [place] [address] Surveyor Chain Helper: Massimo Joseph M.D. 42 Interpretation: Strong Positive (>=60.0) REFERENCE VALUE <20.0 (Negative) Test Performed by: [place] [address] [employer]or Chain Helper: Massimo Joseph M.D. 43 Because ethnic data is not always readily available, this report includes an eGFR for both -Americans and non- Americans. The National Kidney Disease Education Program (NKDEP) does not endorse the use of the MDRD equation for patients that are not between the ages of 18 and 70, are , have extremes of body size, muscle mass, or nutritional status, or are non- or non-. According to the National Kidney Foundation, irrespective of diagnosis, the stage of the disease is based on the level of kidney function: Stage Description GFR(mL/min/1.73 m(2)) 1 Kidney damage with normal or decreased GFR 90 2 Kidney damage with mild decrease in GFR 60-89 3 Moderate decrease in GFR 30-59 4 Severe decrease in GFR 15-29 5 Kidney failure <15 (or dialysis) 44 Acute inflammation: >10.00 45 Because ethnic data is not always readily available, this report includes an eGFR for both -Americans and non- Americans. The National Kidney Disease Education Program (NKDEP) does not endorse the use of the MDRD equation for patients that are not between the ages of 18 and 70, are , have extremes of body size, muscle mass, or nutritional status, or are non- or non-. According to the National Kidney Foundation, irrespective of diagnosis, the stage of the disease is based on the level of kidney function: Stage Description GFR(mL/min/1.73 m(2)) 1 Kidney damage with normal or decreased GFR 90 2 Kidney damage with mild decrease in GFR 60-89 3 Moderate decrease in GFR 30-59 4 Severe decrease in GFR 15-29 5 Kidney failure <15 (or dialysis) 46 Acute inflammation: >10.00 47 Because ethnic data is not always readily available, this report includes an eGFR for both -Americans and non- Americans. The National Kidney Disease Education Program (NKDEP) does not endorse the use of the MDRD equation for patients that are not between the ages of 18 and 70, are , have extremes of body size, muscle mass, or nutritional status, or are non- or non-. According to the National Kidney Foundation, irrespective of diagnosis, the stage of the disease is based on the level of kidney function: Stage Description GFR(mL/min/1.73 m(2)) 1 Kidney damage with normal or decreased GFR 90 2 Kidney damage with mild decrease in GFR 60-89 3 Moderate decrease in GFR 30-59 4 Severe decrease in GFR 15-29 5 Kidney failure <15 (or dialysis) 48 Because ethnic data is not always readily available, this report includes an eGFR for both -Americans and non- Americans. The National Kidney Disease Education Program (NKDEP) does not endorse the use of the MDRD equation for patients that are not between the ages of 18 and 70, are , have extremes of body size, muscle mass, or nutritional status, or are non- or non-. According to the National Kidney Foundation, irrespective of diagnosis, the stage of the disease is based on the level of kidney function: Stage Description GFR(mL/min/1.73 m(2)) 1 Kidney damage with normal or decreased GFR 90 2 Kidney damage with mild decrease in GFR 60-89 3 Moderate decrease in GFR 30-59 4 Severe decrease in GFR 15-29 5 Kidney failure <15 (or dialysis) 49 Because ethnic data is not always readily available, this report includes an eGFR for both -Americans and non- Americans. The National Kidney Disease Education Program (NKDEP) does not endorse the use of the MDRD equation for patients that are not between the ages of 18 and 70, are , have extremes of body size, muscle mass, or nutritional status, or are non- or non-. According to the National Kidney Foundation, irrespective of diagnosis, the stage of the disease is based on the level of kidney function: Stage Description GFR(mL/min/1.73 m(2)) 1 Kidney damage with normal or decreased GFR 90 2 Kidney damage with mild decrease in GFR 60-89 3 Moderate decrease in GFR 30-59 4 Severe decrease in GFR 15-29 5 Kidney failure <15 (or dialysis) 50 Interpretation: Strong Positive (>=60.0) -- REFERENCE VALUE -- <20.0 (Negative) Test Performed by: [address] [address] Surveyor Chain Helper: Tapan Delatorre III, M.D. 51 -- REFERENCE VALUE -- 10.3 - 12.8 52 No evidence of a lupus-like anticoagulant based on results of Prothrombin Time (PT), Activated Partial Thromboplastin Time (APTT), and Dilute Russells Viper Venom Time (DRVVT). Interpretation not reviewed by physician. Test Performed by: [address] [address] Surveyor Chain Helper: Tapan Delatorre III, M.D. 53 Because ethnic data is not always readily available, this report includes an eGFR for both -Americans and non- Americans. The National Kidney Disease Education Program (NKDEP) does not endorse the use of the MDRD equation for patients that are not between the ages of 18 and 70, are , have extremes of body size, muscle mass, or nutritional status, or are non- or non-. According to the National Kidney Foundation, irrespective of diagnosis, the stage of the disease is based on the level of kidney function: Stage Description GFR(mL/min/1.73 m(2)) 1 Kidney damage with normal or decreased GFR 90 2 Kidney damage with mild decrease in GFR 60-89 3 Moderate decrease in GFR 30-59 4 Severe decrease in GFR 15-29 5 Kidney failure <15 (or dialysis) Procedures Date Code Description Status 02/25/2018 061305009 Bone Mineral Density Test Completed 02/07/2016 Inject/Drain Joint/Bursa Major W/O US Completed 09/22/2015 Inject/Drain Joint/Bursa Major W/O US Completed 06/07/2015 Inject/Drain Joint/Bursa Major W/O US Completed 05/24/2015 Inject/Drain Joint/Bursa Major W/O US Completed 07/20/2014 90148 Polysomnography Sleep Staging 4+ Parameters W/Cpap Completed 06/13/2014 17540 Spirometry Incl Graphic Record Completed Encounters Type Date Location Provider Dx Diagnosis Office Visit 12/14/2018 Rheumatology Tray Singh 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 Services Of [facility] rheu factor mult [facility] site w/o org/sys involv Z79.899 Other residential (current) drug therapy Office Visit 07/21/2018 10:00a Rheumatology Zsofia Francisco, M05.79 Rheu arthritis Services Of [facility] rheu factor mult site w/o org/sys involv M25.572 Pain in left ankle and joints of left foot M79.641 Pain in right hand Z79.899 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 N18.2 Chronic kidney disease, stage 2 (mild) Office Visit 02/23/2018 1:30p Rheumatology Tray Singh M05.79 Rheu arthritis Services Of [facility] w/o org/sys involv M17.0 Bilateral primary osteoarthritis of knee Z79.899 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 Office Visit 11/17/2017 1:30p Rheumatology Tray Singh M05.79 Rheu arthritis [facility] w/o org/sys involv M17.0 Bilateral primary osteoarthritis of knee M85.89 Oth disrd of bone density and structure, multiple sites Z79.899 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 Office Visit 07/25/2017 10:30a Rheumatology Tray Singh M05.79 Rheu arthritis Services Of [facility] rheu factor [facility] w/o org/sys involv M17.0 Bilateral primary osteoarthritis of knee Z79.899 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 M.D. knee M25.561 Pain in right knee M25.462 Effusion, left knee M25.461 Effusion, right knee M17.0 Bilateral primary osteoarthritis of knee M05.79 Rheu arthritis w rheu factor mult site w/o org/sys involv Office Visit 01/28/2017 8:30a Rheumatology Tray Singh M05.79 Rheu arthritis Services Of [facility] w rheu factor mult site w/o org/sys involv M17.0 Bilateral primary osteoarthritis of knee Z79.899 Other residential (current) drug therapy Office Visit 10/03/2016 8:30a [facility] Internal Tray Singh, M05.79 Rheu arthritis w [facility] rheu factor mult site w/o org/sys involv R10.10 Upper abdominal pain, unspecified Z79.899 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 Office Visit 06/27/2016 9:00a Rheumatology Tray Singh M05.79 Rheu arthritis Services [facility] site w/o org/sys involv M17.0 Bilateral primary osteoarthritis of knee Z79.899 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 M.D. knee M25.562 Pain in left knee M05.79 Rheu arthritis w rheu factor mult site w/o org/sys involv M17.0 Bilateral primary osteoarthritis of knee M25.461 Effusion, right knee M25.462 Effusion, left knee Office Visit 12/20/2015 10:30a Rheumatology Tray Singh M05.79 Rheu arthritis Services Of [facility] rheu factor mult site w/o org/sys involv M25.569 Pain in unspecified knee R53.83 Other fatigue Z79.899 Other residential (current) drug therapy M25.562 Pain in left knee Office Visit 08/23/2015 9:30a Rheumatology Tray Singh M05.79 Rheu arthritis Services Of [employer] w rheu factor mult site w/o org/sys involv M17.0 Bilateral primary osteoarthritis of knee R79.82 Elevated C-reactive protein (CRP) R79.89 Other specified abnormal findings of blood chemistry Z79.899 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 R74.8 Abnormal levels of other serum enzymes Office Visit 05/24/2015 3:30p Orthopedic Viviane Yang, M06.09 Rheumatoid Services Of [place] arthritis w/o C.M.A. rheumatoid factor, multiple sites M17.0 Bilateral primary osteoarthritis of knee M25.561 Pain in right knee M25.562 Pain in left knee M25.461 Effusion, right knee M25.462 Effusion, left knee Office Visit 05/09/2015 11:30a Rheumatology Tray M06.09 Rheumatoid Services Of ALTAGRACIA Machado arthritis w/o rheumatoid factor, multiple sites M17.9 Osteoarthritis of knee, unspecified Z13.820 Encounter for screening for osteoporosis I73.00 Raynaud's syndrome without gangrene Z79.899 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 M35.00 Sicca syndrome, unspecified M17.0 Bilateral primary osteoarthritis of knee Office Visit 01/20/2015 10:00a Rheumatology Tray Singh, 714.0 Rheumatoid Services Of [facility] Arthritis V58.69 Medications Detention (Current) Use Encounter 715.96 Osteoarthrosis Unspec Genlzd Or Localized Lower Leg 443.0 Raynauds Syndrome 782.1 Rash & Other Nonspec Skin Eruption 733.90 Bone & Cartilage Disorder Unspec Office Visit 10/20/2014 11:40a Rheumatology Lázaro Woodall, 714.0 Rheumatoid Services Of [facility] Arthritis 715.96 Osteoarthrosis Unspec Genlzd Or Localized Lower Leg V58.69 Medications Detention (Current) Use Encounter 443.0 Raynauds Syndrome Office Visit 09/02/2014 1:00p Pulmonology And Zaina 327.23 Obstructive Sleep Sleep Services Of MD Hilda Apnea Adult & [facility] Pediatric 493.90 Asthma Unspec W/O Status Asthmaticus Office Visit 07/06/2014 10:00a Rheumatology Lázaro Woodall, 714.0 Rheumatoid Services Of [facility] Arthritis 715.96 Osteoarthrosis Unspec Genlzd Or Localized Lower Leg V58.69 Medications Engineering Specialist Technician (Current) Use Encounter Office Visit 06/10/2014 9:30a Pulmonology And Zaina 327.23 Obstructive Sleep Sleep Services Of [facility] Adult & [facility] Pediatric 493.90 Asthma Unspec W/O Status Asthmaticus 714.0 Rheumatoid Arthritis Office Visit 04/05/2014 10:00a Rheumatology Lázaro Endo, 714.0 Rheumatoid Services Of [facility] M.D. Arthritis V58.69 Medications Engineering Specialist Technician (Current) Use Encounter 715.96 Osteoarthrosis Unspec Genlzd Or Localized Lower Leg Office Visit 12/31/2013 1:00p Rheumatology Lázaro Endo, 714.0 Rheumatoid Services Of [facility] M.D. Arthritis V58.69 Medications Engineering Specialist Technician (Current) Use Encounter 715.96 Osteoarthrosis Unspec Genlzd Or Localized Lower Leg Office Visit 08/16/2013 10:40a Rheumatology Lázaro Endo, 714.0 Rheumatoid Services Of [facility] M.D. Arthritis V58.69 Medications Detention (Current) Use Encounter Office Visit 04/30/2013 11:00a Rheumatology Lázaro Endo, 714.0 Rheumatoid Services Of [facility] M.D. Arthritis V58.69 Medications Detention (Current) Use Encounter Office Visit 02/26/2013 11:00a Rheumatology Lázaro Endo, 714.0 Rheumatoid Services Of [facility] M.D. Arthritis V58.69 Medications Detention (Current) Use Encounter Office Visit 12/31/2012 2:00p Rheumatology Lázaro Endo, 714.0 Rheumatoid Services Of [facility] M.D. Arthritis V58.69 Medications Detention (Current) Use Encounter Plan of Treatment Future Appointment(s):06/21/2019 9:00 am - ALTAGRACIA Zambrano at Rheumatology Services Of [facility] - [facility]/03/2019 - NIRALI Zambrano05.79 Rheumatoid arthritis with rheumatoid factor of multiple siteComments:Please continue on present medication regime.Follow up:3 month Labs tvnmlZ15.899 Other levers lace machine operator ( current) drug therapy
--- OUTSIDE RECORDS SUMMARY | 2019-05-06 21:55 | XMS REPORT | Continuity of Care Document ---
:1965 External Reference #:[id number] Author Name Tramaine Mcclain, OD Address [address] [place] [address] Care Team Providers Name Role Phone Alvarez WILLARD, Rogelio [facility] Care Team Information Weather Observer Problems Active Problems Provider Date Other specified retinal disorders Tramaine Hart O.D. Onset: 06/23/2015 Myopia Tramaine Hart O.D. Onset: 06/23/2015 Presbyopia Tramaine Hart O.D. Onset: 06/23/2015 Incipient senile cataract Tramaine Hart O.D. Onset: 06/23/2015 Retinal defect Tramaine Hart O.D. Onset: 06/16/2014 Vitreous opacities Tramaine Hart O.D. Onset: 06/16/2014 Cortical senile cataract Tramaine Hart O.D. Onset: 06/16/2014 Ocular hypertension Tramaine Hart O.D. Onset: 12/14/2013 Social History Type Date Description Comments Sex Unknown ETOH Use Occasionally consumes alcohol Tobacco Use Start: Unknown Patient has never smoked Smoking Status Reviewed: 04/13/19 Patient has never smoked Allergies, Adverse Reactions, Alerts Active Allergies Reaction Severity Comments Date Sulfacetamide 11/18/2013 Medications Active Medications SIG Qnty Indications Ordering Date Provider Methotrexate Unknown 2.5mg Tablets Fluconazole take 1 tablet Unknown 150mg Tablets by mouth as directed ; Take 1 Tab Now, And 1 Tab In 4 Da Nitrofurantoin Monohydrate take 1 capsule Unknown 100mg by mouth 1 Hour Capsules Before Procedure. Then 1 Capsule 6 Hour Fluticasone Propionate Unknown 50mcg/Act Suspension Meprobamate Unknown 400mg Tablets Carisoprodol take 1 tablet Unknown 350mg Tablets by mouth three times a day as Needed For Upper Back And Hydrocodone/Acetaminophen take 1 tablet Unknown 5-500mg by mouth every Tablets 4 hours if needed for pain maximum daily Nexium Unknown 40mg Capsules DR Wellbutrin SR Unknown 150mg Tablets ER 12HR Hydroxychloroquine Sulfate Unknown 400mg Tablets Medroxyprogesterone Acetate Unknown 2.5mg Tablets Premarin Unknown 0.625mg/GM Cream Immunizations Description No Information Available Vital Signs Date Vital Result Comment 08/27/2018 9:03am Intraocular Pressure Right Eye 19 mmHg Intraocular Pressure Left Eye 19 mmHg 02/24/2018 8:44am Intraocular Pressure Right Eye 22 mmHg Intraocular Pressure Left Eye 22 mmHg Results Description No Information Available Procedures Date Code Description Status 04/13/2019 77803 Oct Retina Completed 04/13/2019 65266 Visual Field Exam Extended, Unilateral Or Bilateral Completed 04/13/2019 35389 Eye Exam Est Intermediate Completed Medical Devices Description No Information Available Encounters Description No Information Available Assessments Date Code Description Provider 04/13/2019 H40.053 Ocular hypertension, bilateral Tramaine Mcclain, OD 04/13/2019 Z79.899 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
--- NOTE | 2019-05-06 23:54 | ED ---
HPI Chest Pain - HPI Summary HPI Summary: This pt is a 53 y/o female [facility] chest pain for the past 24 hours. Pt states she was sitting down on her computer during the onset of her chest pain. She describes chest pain as pressure that radiates to her back. Patient associated symptoms include SOB, described as "needing to take a deep breath." Pt reports she has had this pressure feeling in her chest in the last several months that have been more frequent. Pt admits to recent stress, her father on 03/22/19 and was attending him for the last hours of his life. Additionally pt now has to take care of her mother. She states she is not handling stress well and notes today she had a panic attack while in the waiting room. PMHx includes depression and anxiety, for which she takes Wellbutrin and Meprobamate. She last took Meprobamate was yesterday at 16:00. Allergic to Sulfa. - History of Current Complaint Chief Complaint: EDChestPainROMI Time Seen by Provider: 05/06/19 23:33 Hx Obtained From: Patient Hx Last Menstrual Period: NONE Onset/Duration: Started Hours Ago, Still Present Timing: Lasting Hours Current Severity: Mild Pain Intensity: 2 Pain Scale Used: 0-10 Numeric Chest Pain Location: Mid Sternal Chest Pain Radiates: Yes Chest Pain Radiates To:: Back Character: Pressure/Squeezing - pressure Aggravating Factor(s): Nothing Alleviating Factor(s): Nothing Associated Signs and Symptoms: Positive: Chest Pain, Recent Stress, Shortness of Breath. Negative: Fever - Allergy/Home Medications Allergies/Adverse Reactions: Allergies Allergy/AdvReac Type Severity Reaction Status Date / Time Sulfa (Sulfonamide Allergy Hives Verified 05/06/19 21:58 Antibiotics) PMH/Surg Hx/FS Hx/Imm Hx Endocrine/Hematology History: Denies: Hx Diabetes, Hx Thyroid Disease Cardiovascular History: Denies: Hx Congestive Heart Failure, Hx Hypertension, Hx Pacemaker/ICD Respiratory History: Reports: Hx Asthma Denies: Hx Chronic Obstructive Pulmonary Disease (COPD) GI History: Reports: Other GI Disorders - gerd Denies: Hx Ulcer History: Reports: Other Problems/Disorders - occ uti Musculoskeletal History: Reports: Hx Rheumatoid Arthritis, Other Musculoskeletal History - RA Sensory History: Denies: Hx Hearing Aid Psychiatric History: Reports: Hx Anxiety, Hx Depression Denies: Hx Panic Disorder - Surgical History Surgery Procedure, Year, and Place: D&C w/ ablation, BLADDER sling and mesh, BILATERAL KNEE REPLACEMENTS(08/20/2017, 05/2017), LEFT BREAST BIOPSY WITH MARKER PLACEMENT 2YRS AGO Infectious Disease History: No Infectious Disease History: Denies: Hx Clostridium Difficile, Hx Hepatitis, Hx Human Immunodeficiency Virus (HIV), Hx of Known/Suspected MRSA, Hx Shingles, Hx Tuberculosis, Hx Known/ Suspected VRE, Hx Known/Suspected VRSA, History Other Infectious Disease, Traveled Outside the [place] in Last 30 Days - Family History Known Family History: Positive: Other - POS: [place] (father first in 40s) - Social History Alcohol Use: Rare Substance Use Type: Reports: None Smoking Status (MU): Never Smoked Tobacco Review of Systems - ROS Summary Review of Systems Summary: Home Medications Medication Instructions Recorded Confirmed Type buPROPion HCl [Wellbutrin Sr] 150 mg PO BID 10/26/12 05/06/19 History Cholecalciferol [Vitamin D3] 5,000 unit PO DAILY 09/15/13 05/06/19 History Esomeprazole Magnesium [Nexium] 40 mg PO DAILY 09/15/13 05/06/19 History Folic Acid 1 mg PO DAILY 09/15/13 05/06/19 History Lutein 1 tab PO DAILY 09/15/13 05/06/19 History Methotrexate Sodium [Methotrexate] 6 tab PO WEEKLY 09/15/13 05/06/19 History Clifford-3 Fatty Acids [Fish Oil] 1 cap PO DAILY 09/15/13 05/06/19 History Conjugated Estrogens VAG CM* 0.5 gm VAGINAL WEEKLY 06/29/15 05/06/19 History [Premarin VAG CREAM*] Conjugated Estrogens-Medroxypr 1 mg PO DAILY 06/29/15 05/06/19 History [Prempro] Albuterol HFA INHALER* [Ventolin 2 puff INH Q4H PRN 12/20/16 05/06/19 History HFA Inhaler*] Carisoprodol TAB* [Soma TAB*] 350 mg PO TID PRN 12/20/16 05/06/19 History Diclofenac Sodium EC TAB* 75 mg PO BID 12/20/16 05/06/19 History [Voltaren EC TAB*] Fluticasone NASAL SPRAY 50MCG* 2 spray BOTH NARES DAILY 12/20/16 05/06/19 History [Flonase NASAL SPRAY 50MCG*] Hydroxychloroquine TAB* [Plaquenil 200 mg PO DAILY 12/20/16 05/06/19 History TAB*] Meprobamate TAB* [Equanil TAB*] 400 mg PO QID PRN 12/20/16 05/06/19 History medroxyPROGESTERone TAB* [Provera 2.5 mg PO DAILY 12/20/16 05/06/19 History TAB*] Sucralfate TAB* [Carafate*] 10 ml PO TID PRN #120 ml 03/02/17 05/06/19 Rx Negative: Fever, Chills Positive: Chest Pain Positive: Shortness Of Breath Psychological: Other - POSITIVE: stress All Other Systems Reviewed And Are Negative: Yes Physical Exam - Summary Physical Exam Summary: General: Well-developed, Well-nourished female. Patient is tearful and sobbing during exam. HEENT: Normocephalic, Atraumatic. Eyes: Conjuctiva normal, PERRL. Ears: TMs within normal limits. Nares: (-) discharge, (-) erythema. Oropharynx: Clear, mucous membranes moist, (-) exudates. Neck: Soft, FROM, (-) lymphadenopathy, (-) thyromegaly, (-) JVD. Cardiovascular: Normal sinus rhythm, (-) murmur. Lungs: Clear to auscultation bilaterally (-) wheezes, (-) rales, (-) rhonchi. Abdomen: Soft, non-tender, non-distended, (-) organomegaly, normal bowel sounds. Back: (-) CVA tenderness Extremities: No edema. Skin: Warm, dry, (-) rash. Neuro: Alert and oriented x3, no focal deficits. Psychiatric: Patient is tearful and sobbing during exam. Triage Information Reviewed: Yes Vital Signs On Initial Exam: Initial Vitals Temp Pulse Resp BP Pulse Ox 98.1 F 75 20 144/78 100 05/06/19 21:50 05/06/19 21:50 05/06/19 21:50 05/06/19 21:50 05/06/19 21:50 Vital Signs Reviewed: Yes Diagnostics - Vital Signs Vital Signs Temp Pulse Resp BP Pulse Ox 05/06/19 21:50 98.1 F 75 20 144/78 100 - Laboratory Result Diagrams: 05/07/19 00:35 05/07/19 00:35 Lab Statement: Any lab studies that have been ordered have been reviewed, and results considered in the medical decision making process. - Radiology Chest XR Radiology Interpretation Completed By: ED Physician Summary of Radiographic Findings: Negative XR. No obvious infiltrates or pleural effusion. - EKG 21:50 Cardiac Rate: NL - at 72 bpm EKG Rhythm: Sinus Rhythm Summary of EKG Findings: EKG at 2150 reveals normal sinus rhythm with rate of 72 bpm, no acute changes, no ischemic changes. This EKG was reviewed and interpreted by Dr. Berumen. Re-Evaluation - Re-Evaluation First Eval Re-Evaluation Time: 01:23 Change: Improved Comment: I have discussed results with the patient and chest pain and anxiety have resolved. Discussed symptoms that warrant immediate return to the ED. Chest Pain Course/Dx - Course Assessment/Plan: Pt is a 53 y/o female [facility]/o chest pain for the past 24 hours. Pt states she was sitting down on her computer during the onset of her chest pain. She describes chest pain as pressure that radiates to her back. Patient associated symptoms include SOB, described as "needing to take a deep breath." Pt reports she has had this pressure feeling in her chest in the last several months that have been more frequent. Pt admits to recent stress. Blood work results are unremarkable. Chest XR is negative for infiltrate or pleural effusion. In the ED course the pt was given Xanax. Patient is feeling better after medication. She will be discharged home with follow up from her PCP in 3 days. Pt was instructed to return to the ED for any worsening or new symptoms. - Diagnoses Provider Diagnoses: Chest pain, Anxiety Discharge ED - Sign-Out/Discharge Documenting (check all that apply): Patient Departure - Discharge home Patient Received Moderate/Deep Sedation with Procedure: No - Discharge Plan Condition: Stable Disposition: HOME Patient Education Materials: Chest Pain (ED), Anxiety (ED) Referrals: Rogelio Pino MD [Primary Care Provider] - Additional Instructions: Please follow up with your primary care provider within three days. Please return to the ED for any new or worsening symptoms. - Billing Disposition and Condition Condition: STABLE Disposition: Home - Attestation Statements Document Initiated by Scribe: Yes Documenting Scribe: Ana Lilia Tomas Provider For Whom Scribe is Documenting (Include Credential): Dr. Keli Berumen MD Scribe Attestation: I, butch Tolliveribed for Dr. Keli Berumen MD on 05/07/19 at 0521. Scribe Documentation Reviewed: Yes Provider Attestation: The documentation as recorded by the Ana Lilia oneill accurately reflects the service I personally performed and the decisions made by me, Dr. Keli Berumen MD Status of Scribe Document: Viewed
[2019-05-07] MEDS ORDERED: ALPRAZolam TAB* 0.5 MG PO ONE (00:01)
[2019-05-07 00:40] LABS: ABS Eosinophils 0.2 10^3/ul (0-0.6); ABS Monocytes 0.7 10^3/ul (0-0.8); ABS Neutrophils 4.8 10^3/ul (1.5-7.7); Eosinophil % 2.8 %; Hematocrit 38 % (35-47); Hemoglobin 13.1 g/dL (12.0-16.0); Mean Corpuscular HGB Conc 34 g/dL (31-36); Mean Corpuscular Hemoglobin 33 pg (27-31); Mean Corpuscular Volume 96 fL (80-97); Mean Platelet Volume 6.9 fL (7.4-10.4); Nucleated Red Blood Cells % 0.1; Platelet Count 417 10^3/uL (150-450); Red Cell Distribution Width 13 % (10-15); White Blood Count 8.8 10^3/uL (3.5-10.8)
[2019-05-07 00:50] LABS: INR 0.98 (0.82-1.09)
[2019-05-07 00:58] LABS: Albumin 4.2 g/dL (3.2-5.2); Albumin/Globulin Ratio 1.4 (1-3); Calcium 10.3 mg/dL (8.6-10.3); EGFR African American 85.5 (>60); EGFR Non-African American 70.7 (>60); Potassium 4.1 mmol/L (3.5-5.0); Total Bilirubin 0.2 mg/dL (0.2-1.0); Total Protein 7.2 g/dL (6.4-8.9)
[2019-05-07 01:30] VITALS: BP 114/75
== END 2019-05-07 01:29 | disposition home or self-care (01) ==
LOC: ED 21:48
DX: R07.9 Chest pain, unspecified (principal); F41.9 Anxiety disorder, unspecified; F32.9 Major depressive disorder, single episode, unspecified; J45.909 Unspecified asthma, uncomplicated; Z88.2 Allergy status to sulfonamides; Z96.653 Presence of artificial knee joint, bilateral
CPT/HCPCS: 36415; 71045; 80053; 84484; 85025; 85610; 93005; 99283; A9270-GY